=== PATIENT | male | born 1950 | race Caucasian/White ===

== ENCOUNTER 2020-12-25 13:44 | Outpatient (CLI) | payer MEDICARE, BC, SELFPAY ==
--- NOTE | ~2020-12-25 | MR_ITS ---
EXAMINATION: MR brain/brain stem wo/w con DATE: 12/25/2020 14:55 INDICATION: Headache, unspecified. Dizziness. TECHNIQUE: Magnetic resonance imaging (MRI) of the brain and brainstem was performed without and with 20 mL MultiHance intravenous contrast. Sequences included sagittal and axial T1-weighted FSE, axial diffusion-weighted FS EPI, axial T2*-weighted GRE, axial T2-weighted FLAIR Propeller, and axial T2-we ighted Propeller. Postcontrast sequences included axial and coronal T1-weighted FSE. Apparent diffusi on coefficient (ADC) maps were created. COMPARISON: Head CT 05/02/2015 FINDINGS: There are scattered areas of nonspecific increased T2-weighted signal intensity in the cere bral white matter and magdalene. There is no intracranial hemorrhage, acute infarction, or abnormal intrac ranial mass lesion. The ventricles are normal in size. The paranasal sinuses are clear. The orbits ar e normal. The mastoid air cells are normal. IMPRESSION: 1. Moderate nonspecific cerebral white matter disease and pontine disease, which likely represents ch ronic small vessel ischemic disease. Reviewed, dictated and finalized at location A. [employer] IMPRESSION: 1. Moderate nonspecific cerebral white matter disease and pontine disease, whic h likely represents chronic small vessel ischemic disease.
[2020-12-25 14:28] LABS: Estimated Glomerular Filt Rate > 60
== END 2020-12-25 13:45 | disposition home or self-care (01) ==
LOC: ANHIMG 13:56
PROVIDERS: PCP Internal Medicine; Visit Provider Nurse Practitioner
DX: R51.9 Headache, unspecified (principal); R93.0 Abnormal findings on diagnostic imaging of skull and head, not elsewhere classified
CPT/HCPCS: 70553; A9577

== ENCOUNTER 2021-08-24 03:17 | Day surgery (SDC) | payer MEDICARE, BC, SELFPAY ==
[2021-08-07 13:33] VITALS: BMI 35.9
--- NOTE | 2021-08-23 12:25 | PM.HPGS ---
History of Present Illness History of Present Illness Consent: Risks, benefits, and alternatives have been discussed and questions answered. Patient agrees to proceed with procedure. Chief complaint: hx of colon polyps Narrative: Kristopher Miles is a 70 year old male referred for colon cancer screening. He has had 3 polyps removed in the past Review of Systems Review of Systems: All systems reviewed & are unremarkable except as noted in HPI and below PMFSH Past Medical History Medical History Diabetes mellitus Leiomyosarcoma Macular degeneration Plantar fasciitis Spinal stenosis Family History Family History Father Cerebrovascular accident Family history of transient ischemic attacks Mother Family history of Alzheimer's disease Family history of dementia Sibling Patient's sister is in good health Other Diabetes mellitus Family history of cardiovascular disease Social History Social History Smoking status: Former smoker Alcohol intake: never Substance use: never Living arrangements: alone Spiritual care concerns: No Meds Home Medications and Allergies Home Medications Medication Instructions Recorded Confirmed Type vit C 250 mg-vit E 90 mg-zinc 40 1 tablet PO BID 09/28/19 08/24/21 History mg-copper 1 [id number] capsule aspirin 81 mg tablet,delayed 81 mg PO DAILY 12/21/19 08/24/21 History release omega-3 fatty acids 1,000 mg 1,000 mg PO DAILY 12/21/19 08/24/21 History capsule terbinafine HCl 250 mg tablet 250 mg PO MONTHLY 12/21/20 08/24/21 History flash glucose scanning reader #1 ea 12/25/20 08/24/21 Rx gabapentin 300 mg capsule 600 mg PO HS 02/15/21 08/24/21 History metformin 1,000 mg tablet 1,000 mg PO BID #180 tablet 06/18/21 08/24/21 Rx semaglutide 0.25 mg SUBCUT WEEKLY #1.5 ml 06/18/21 08/24/21 Rx losartan 100 mg tablet 100 mg PO DAILY #90 tablet 08/01/21 08/24/21 Rx lifitegrast [Xiidra] 1 drp EACH EYE BID 08/07/21 08/24/21 History flash glucose sensor #1 ea 08/10/21 08/24/21 Rx Allergies Allergy/AdvReac Type Severity Reaction Status Date / Time atorvastatin Allergy Mild Hives Verified 08/24/21 06:53 lisinopril Allergy Mild Flushing Verified 08/24/21 06:53 tamsulosin [From Flomax] Allergy Mild Hives Verified 08/24/21 06:53 Exam Resp: Auscultation: clear to auscultation bilaterally Cardio: Rate: regular rate Rhythm: regular rhythm GI: GI Palp: Yes Soft to palpation and No Tenderness to palpation present (GI) Assessment and Plan Assessment and plan (1) Screening for colon cancer: Code(s): Z12.11 - Encounter for screening for malignant neoplasm of colon Status: Acute Assessment and Plan: Colonoscopy with possible biopsy or polypectomy or cautery or injection of substances.
[2021-08-24 06:56] VITALS: BP 152/90; PULSE 88; RESP 18; TEMP 36.7; O2SAT 100
[2021-08-24] MEDS: LACTATED RINGERS 1,000 ML 150 ML IV CONT (07:08)
[2021-08-24 07:13] LABS: Glucose Point of Care 121 mg/dl (65-105)
--- NOTE | 2021-08-24 07:56 | WPDANESEPP ---
Anes - Eval Pre Procedure Procedure: Operation Date: 08/24/21 08:00 Proposed Procedures p Screening Colonoscopy - Alonso Ta MD Date/Time: 08/24/21 07:56 Pre Op Diagnosis: hx of colon polyps Patient Data Age: 70 Gender: M Height: 1.78 m Weight: 112.7 kg Last Vital Signs Temp 36.7 C 08/24/21 06:56 Pulse 88 08/24/21 06:56 Resp 18 08/24/21 06:56 BP 152/90 H 08/24/21 06:56 Pulse Ox 100 08/24/21 06:56 Allergies Allergy/AdvReac Type Severity Reaction Status Date / Time atorvastatin Allergy Mild Hives Verified 08/24/21 06:53 lisinopril Allergy Mild Flushing Verified 08/24/21 06:53 tamsulosin [From Flomax] Allergy Mild Hives Verified 08/24/21 06:53 Home Medications Medication Instructions Recorded Confirmed Type vit C 250 mg-vit E 90 mg-zinc 40 1 tablet PO BID 09/28/19 08/24/21 History mg-copper 1 [id number] capsule aspirin 81 mg tablet,delayed 81 mg PO DAILY 12/21/19 08/24/21 History release omega-3 fatty acids 1,000 mg 1,000 mg PO DAILY 12/21/19 08/24/21 History capsule terbinafine HCl 250 mg tablet 250 mg PO MONTHLY 12/21/20 08/24/21 History flash glucose scanning reader #1 ea 12/25/20 08/24/21 Rx gabapentin 300 mg capsule 600 mg PO HS 02/15/21 08/24/21 History metformin 1,000 mg tablet 1,000 mg PO BID #180 tablet 06/18/21 08/24/21 Rx semaglutide 0.25 mg SUBCUT WEEKLY #1.5 ml 06/18/21 08/24/21 Rx losartan 100 mg tablet 100 mg PO DAILY #90 tablet 08/01/21 08/24/21 Rx lifitegrast [Xiidra] 1 drp EACH EYE BID 08/07/21 08/24/21 History flash glucose sensor #1 ea 08/10/21 08/24/21 Rx Laboratory Tests 08/24/21 07:07 POC Capillary Glucose 121 mg/dl H mg/dl (65-105) Patient hx anesthesia problems: none Family hx anesthesia problems: none Results Review: All pre-operative results and documents have been reviewed as part of the pre-operative evaluation. [facility] Past Medical History Medical History Diabetes mellitus Leiomyosarcoma Macular degeneration Plantar fasciitis Spinal stenosis Family History Family History Father Cerebrovascular accident Family history of transient ischemic attacks Mother Family history of Alzheimer's disease Family history of dementia Sibling Patient's sister is in good health Other Diabetes mellitus Family history of cardiovascular disease Social History Social History Smoking status: Former smoker Alcohol intake: never Substance use: never Living arrangements: alone Spiritual care concerns: No Exam Day of Procedure 08/24/21 07:56 Patient weight: normal Heart: regular rate and rhythm Lungs: clear to auscultation and normal air movement Airway: Mallampati scale Neurological: alert and oriented
--- NOTE | 2021-08-24 08:01 | WPDANESEFPP ---
Anes - Eval Final PreProcedure Day of Procedure 08/24/21 08:01 Patient weight: obese Heart: regular rate and rhythm Lungs: clear to auscultation Airway: Mallampati scale class II Neurological: alert and oriented Last oral intake: >/= 8 hours ASA classification: III Emergent: no Anesthetic plan: proceed Anesthesia type and monitoring: general GIVS and standard monitoring Results Review: All pre-operative results and documents have been reviewed as part of the pre-operative evaluation. Informed Consent: The patient's anesthetic plan and its attendant risks and benefits were discussed with the patient/family/POA. Questions were solicited and answers provided to the satisfaction of the patient/family/POA.
[2021-08-24] MEDS: SIMETHICONE ORAL SUSPENSION 20 MG/0.3 ML 30 ML BOTTLE 0.6 ML IRRIGATION (08:08)
[2021-08-24 08:20] VITALS: BP 119/81; PULSE 87; RESP 24; O2SAT 97
[2021-08-24 08:30] VITALS: BP 130/77; PULSE 86; RESP 20; O2SAT 100
[2021-08-24 08:40] VITALS: BP 123/77; PULSE 79; RESP 20; O2SAT 100
== END 2021-08-24 09:00 | disposition home or self-care (01) ==
PROVIDERS: PCP Internal Medicine; Visit Provider Internal Medicine Gastroenterology
PROC: 0DJD8ZZ Inspection of Lower Intestinal Tract, Via Natural or Artificial Opening Endoscopic (ICD-10-PCS; CPT 45378; principal; 2021-08-24 08:00)
DX: Z12.11 Encounter for screening for malignant neoplasm of colon (principal); K63.5 Polyp of colon; E66.9 Obesity, unspecified; Z68.35 Body mass index [BMI] 35.0-35.9, adult; Z79.82 Long term (current) use of aspirin; Z79.84 Long term (current) use of oral hypoglycemic drugs; E11.9 Type 2 diabetes mellitus without complications; M72.2 Plantar fascial fibromatosis; Z87.891 Personal history of nicotine dependence
CPT/HCPCS: G0105; 82948; 88305; J2704; J7120

== ENCOUNTER → 2022-05-31 01:35 | Outpatient (CLI) | payer MEDICARE, BC, SELFPAY ==
[2022-05-31 11:14] LABS: SARS-CoV-2 RNA PCR Negative
== END ==
PROVIDERS: PCP Internal Medicine; Visit Provider Nurse Practitioner
DX: R50.9 Fever, unspecified (principal); Z20.822 Contact with and (suspected) exposure to COVID-19
CPT/HCPCS: C9803; U0003; U0005

== ENCOUNTER 2022-07-01 14:27 | Outpatient (RCR) | payer MEDICARE, BC, SELFPAY ==
--- NOTE | 2022-07-01 14:53 | PCPTNOTE ---
pt attended PT evaluation appt, and stated he was getting therapy at another facility and wanted to go there for vestibular therapy too. He stated the other therapist can do vestibular therapy and he had talked with him about it. PT eval not performed. Issued pt a copy of the PT order and he is going to go to another facility for treatment.
== END 2022-09-16 09:57 | disposition home or self-care (01) ==
LOC: ANHPT 14:27
PROVIDERS: PCP Internal Medicine; Referring Provider Nurse Practitioner; Visit Provider Nurse Practitioner
DX: R42 Dizziness and giddiness (principal)
CPT/HCPCS: 99199

== ENCOUNTER → 2022-07-30 12:03 | Outpatient (CLI) | payer MEDICARE, BC, SELFPAY ==
--- NOTE | ~2022-07-30 | MR_ITS ---
EXAMINATION: MR thoracic spine wo/w con DATE: 07/30/2022 14:01 INDICATION: Myelopathy. TECHNIQUE: Magnetic resonance imaging (MRI) of the thoracic spine was performed without and with 20 m L MultiHance intravenous contrast. COMPARISON: None FINDINGS: There is 4 degrees levocurvature of upper thoracic spine. Vertebral body heights are normal . Intervertebral disc heights are normal. The discs do not extend beyond the endplate margins. There is multilevel facet joint osteoarthritis, severe on the right at T8-T9 and on the left at T7-T8 and T 8-T9. On the right, there is mild neural foraminal stenosis at T8-T9. On the left, there is mild neur al foraminal stenosis at T7-T8 and T8-T9. No central canal stenosis. The spinal cord signal intensity is normal. The conus medullaris is at L1. IMPRESSION: 1. Mild thoracic spondylosis. Reviewed, dictated and finalized at location A.
--- NOTE | ~2022-07-30 | MR_ITS ---
EXAMINATION: MR cervical spine wo/w con DATE: 07/30/2022 14:00 INDICATION: Myelopathy. TECHNIQUE: Magnetic resonance imaging (MRI) of the cervical spine was performed without and with 20 m L MultiHance intravenous contrast. COMPARISON: None FINDINGS: There is 4 degrees dextrocurvature of cervicothoracic spine. There is hypolordosis of cervi malka spine. Vertebral body heights are normal. There is severely decreased disc height from C4-C5 thro ugh C7-T1. The spinal cord signal intensity is normal. The following disc levels are specifically dis cussed: C2-C3: The disc does not extend beyond the endplate margin. There is no uncovertebral joint osteoarth ritis. There is severe right and moderate left facet joint osteoarthritis. There is mild bilateral ne ural foraminal stenosis. There is no central canal stenosis. C3-C4: There is a central extrusion. There is mild left uncovertebral joint osteoarthritis. There is moderate right and severe left facet joint osteoarthritis. There is mild right and moderate left neur al foraminal stenosis. There is mild central canal stenosis with ventral indentation of the spinal co rd. C4-C5: The disc is bulging. There is severe bilateral uncovertebral joint osteoarthritis. There is mo derate right and severe left facet joint osteoarthritis. There is moderate bilateral neural foraminal stenosis. There is moderate central canal stenosis with ventral and dorsal indentation of the spinal cord. C5-C6: The disc is bulging. There is severe bilateral uncovertebral joint osteoarthritis. There is mi ld bilateral facet joint osteoarthritis. There is moderate right and mild left neural foraminal steno sis. There is mild central canal stenosis with ventral indentation of spinal cord. C6-C7: The disc is bulging. There is severe bilateral uncovertebral joint osteoarthritis. There is mi ld bilateral facet joint osteoarthritis. There is mild bilateral neural foraminal stenosis. There is mild central canal stenosis. C7-T1: The disc is bulging. There is severe bilateral uncovertebral joint osteoarthritis. There is se connie bilateral facet joint osteoarthritis. There is mild bilateral neural foraminal stenosis. There i s mild central canal stenosis. IMPRESSION: 1. Severe cervical spondylosis. Reviewed, dictated and finalized at location A.
== END ==
PROVIDERS: PCP Internal Medicine
DX: R26.89 Other abnormalities of gait and mobility (principal); R26.9 Unspecified abnormalities of gait and mobility; M47.894 Other spondylosis, thoracic region; M47.892 Other spondylosis, cervical region
CPT/HCPCS: 72156; 72157; A9577

== ENCOUNTER 2023-04-10 15:15 | Emergency (ER) | payer MEDICARE, BC, SELFPAY ==
--- NOTE | ~2023-04-10 | XR_ITS ---
EXAMINATION: XR chest 2V DATE: 04/10/2023 15:48 INDICATION: EKG changes TECHNIQUE: frontal view of the chest was obtained. COMPARISON: Chest radiograph dated 06/28/[address] dated 05/02/2015 and 08/02/2016 FINDINGS: Subtle reticulonodular opacities at the right lung base corresponding to a small amount of chronic in terstitial lung disease trauma versus scarring on prior CT. No new airspace opacity, pulmonary edema, pleural effusion or pneumothorax. The cardiomediastinal silhouette is normal. Postoperative changes with plate and screw fixations along the right lamina at C5 and C6. IMPRESSION: 1. Chronic mild atelectasis/scarring at the right lung base. No acute cardiopulmonary disease. Reviewed, dictated and finalized at location A. IMPRESSION: 1. Chronic mild atelectasis/scarring at the right lung base. No acute cardiopul monary disease.
--- NOTE | 2023-04-10 15:17 | ECG_ITS ---
Measurements Intervals [place] Rate: 107 P: 33 AR: 145 QRS: -19 QRSD: 99 T: 30 QT: 319 QTc: 426 Interpretive Statements SINUS TACHYCARDIA POOR RE-WAVE PROGRESSION INFERIOR MYOCARDIAL INFARCTION , PROBABLY OLD [40+ ms Q WAVE AND/OR ST/T ABNORMALITY IN II/aVF] NO PREVIOUS ECG AVAILABLE FOR COMPARISON Electronically Signed On 04-10-2023 16:07:17 CDT by Radha Sims M.D.
[2023-04-10 15:18] VITALS: BP 153/78; PULSE 108; RESP 18; TEMP 36.4; O2SAT 97
[2023-04-10 15:37] LABS: Basophils Absolute Auto 0.1 K/mm3 (0.0-0.1); Eosinophils Absolute Auto 0.2 K/mm3 (0-0.3); Eosinophils Percent Auto 2.2 % (0-4.4); Hematocrit 45.6 % (42.0-52.0); Hemoglobin 15.2 g/dL (14.0-18.0); Immature Granulocyte Absolute 0.03 K/mm3 (0.00-0.031); Immature Granulocyte Percent A 0.3 % (0-0.5); Lymphocytes Absolute Auto 2.49 K/mm3 (0.9-3.2); Lymphocytes Percent Auto 27.7 % (18.3-44.2); Mean Corpuscular HGB Conc 33.3 g/dl (32-36); Mean Corpuscular Hemoglobin 29.8 pg (26-34); Mean Corpuscular Volume 89.4 fl (80-100); Mean Platelet Volume 9.2 fl (7.4-10.4); Monocytes Absolute Auto 0.8 K/mm3 (0.1-0.6); Monocytes Percent Auto 8.3 % (2.6-8.5); Neutrophils Absolute Auto 5.4 K/mm3 (1.3-6.7); Neutrophils Percent Auto 60.5 % (45.5-73.1); Platelet Count Result 244 k/mm3 (150-375); Red Cell Distribution Width 13.9 % (11.5-14.5)
[2023-04-10 15:47] LABS: Alanine Aminotransferase 29 U/L (6-50); Albumin Level 4.6 g/dL (3.5-5.1); Alkaline Phosphatase 74 U/L (38-126); Anion Gap 9 mmol/L (8-16); Aspartate Amino Transferase 25 U/L (17-59); Bilirubin,Total 0.3 mg/dL (0.2-1.3); Blood Urea Nitrogen 18 mg/dL (9-20); Calcium 8.8 mg/dL (8.4-10.2); Carbon Dioxide 25 mmol/L (22-30); Chloride 103 mmol/L (98-107); Estimated CRCL calculation 94 ml/min; Estimated Glomerular Filt Rate > 60; Glucose 143 mg/dL (65-110); Lipase 93 U/L (23-300); Potassium 4.1 mmol/L (3.4-5.0); Sodium 137 mmol/L (137-145)
[2023-04-10 15:48] LABS: INR 0.9; Prothrombin Time 12.2 Seconds (11.1-14.7)
[2023-04-10 15:49] LABS: Partial Thromboplastin Time 29.4 SECONDS (22.3-36.8)
[2023-04-10 16:00] LABS: Troponin I < 0.012 ng/mL (0.000-0.034)
[2023-04-10 16:28] VITALS: RESP 18; O2SAT 97
[2023-04-10 16:33] VITALS: BP 167/108; PULSE 99; RESP 12; O2SAT 97
[2023-04-10 17:41] VITALS: BP 166/99; PULSE 97; RESP 20; O2SAT 98
--- NOTE | 2023-04-10 17:56 | ED.GENADULT ---
HPI - General Adult General Chief complaint: Recheck/Abnormal Lab/Rx Stated complaint: Multiple complaints, VARGAS, GERD Ekg changes Time Seen by Provider: 04/10/23 16:37 History of Present Illness HPI narrative: Patient is a 72-year-old male who presents ER with multiple chronic complaints. The main issue that he arrives with today's that his PCP performed an EKG on him in the office that showed EKG changes. He reports they are concerned he could have had a heart attack given the fact that he has been having acid reflux symptoms and sent him to the ER. He reports he has been on Protonix 40 mg for prolonged period due to acid reflux and he had to discontinue his omeprazole. He has history of ulcerations in the past. He has not had a EGD recently. He reports his symptoms are worse at nighttime when he lays down flat. He has no nausea or vomiting. No dark black stools or hematemesis. Patient said complaint is that he has had blurring of his peripheral vision over the last 2 weeks anytime he looks to the right or left side. He has history of macular degeneration and follows with a retina specialist. He has not yet contacted his eye doctor regarding these issues. He reports these issues are also related to a throbbing frontal headache. He has no history of migraine headache and no history of aneurysm. He has no focal numbness or weakness in arms/legs/face. Related Data Home Medications Medication Instructions Recorded Confirmed vit C 250 mg-vit E 90 mg-zinc 40 1 tablet PO BID 09/28/19 04/10/23 mg-copper 1 [id number] capsule (PreserVision AREDS-2) aspirin 81 mg tablet,delayed 81 mg PO DAILY 12/21/19 04/10/23 release (Adult Aspirin Regimen) omega-3 fatty acids 1,000 mg 1,000 mg PO DAILY 12/21/19 04/10/23 capsule (Fish Oil Concentrate) lifitegrast 5 % eye drops in a 1 drp EACH EYE BID 08/07/21 04/10/23 dropperette (Xiidra) Allergies Allergy/AdvReac Type Severity Reaction Status Date / Time atorvastatin Allergy Mild Hives Verified 04/10/23 16:32 lisinopril Allergy Mild Flushing Verified 04/10/23 16:32 tamsulosin [From Flomax] Allergy Mild Hives Verified 04/10/23 16:32 Review of Systems Review of Systems: All systems reviewed & are unremarkable except as noted in HPI and below Constitutional: Constitutional: Denies chills, Denies fatigue and Denies fever(s) Eyes: Eyes: Reports change in vision and Denies photophobia ENT: Denies nasal congestion and Denies sore throat Cardiovascular: Cardiovascular: Denies chest pain, Denies rapid heart rate, Denies radiating jaw, neck or arm pain and Denies slow heart rate Respiratory: Respiratory: Denies cough and Denies dyspnea Gastrointestinal: Gastrointestinal: Denies abdominal pain, Reports bloating, Reports heartburn, Denies diarrhea, Denies nausea and Denies vomiting Comments: Frequent belching Neurologic: Reports headache(s), Denies focal weakness and Denies numbness PMFSH Past Medical History Medical History (Updated 04/10/23 @ 18:15 by Salvador Sterling MD) Diabetes mellitus GERD (gastroesophageal reflux disease) Leiomyosarcoma Macular degeneration Plantar fasciitis Spinal stenosis Surgical History Surgical History (Updated 02/27/23 @ 08:41 by Anni Lopez [facility]) H/O laminectomy (~09/23/22) Family History Family History Father Cerebrovascular accident Family history of transient ischemic attacks Mother Family history of Alzheimer's disease Family history of dementia Sibling Patient's sister is in good health Other Diabetes mellitus Family history of cardiovascular disease Social History Social History (Updated 02/27/23 @ 08:49 by Anni Lopez [facility]) Smoking status: Former smoker Alcohol intake: never Alcohol use details: rare Substance use: never Substance use type: former substance user and marijuana Last use: early 20s, experimented Lack of Transportat
== END 2023-04-10 18:34 | disposition home or self-care (01) ==
PROVIDERS: Emergency Provider Emergency Medicine; PCP Internal Medicine
DX: K21.9 Gastro-esophageal reflux disease without esophagitis (principal); E11.9 Type 2 diabetes mellitus without complications; H35.30 Unspecified macular degeneration; Z87.891 Personal history of nicotine dependence; R00.0 Tachycardia, unspecified; R94.31 Abnormal electrocardiogram [ECG] [EKG]; Z79.82 Long term (current) use of aspirin; Z79.84 Long term (current) use of oral hypoglycemic drugs
CPT/HCPCS: 36415; 71046; 80053; 83690; 84484; 85025; 85610; 85730; 93005; 99284

== ENCOUNTER → 2023-04-24 09:08 | Outpatient (CLI) | payer MEDICARE, BC, SELFPAY ==
--- NOTE | ~2023-04-24 | MR_ITS ---
EXAMINATION: MR brain/brain stem wo/w con DATE: 04/24/2023 10:07 INDICATION: Headache, unspecified. TECHNIQUE: Magnetic resonance imaging (MRI) of the brain and brainstem was performed without and with 20 mL MultiHance intravenous contrast. COMPARISON: Brain MRI 12/25/2020 FINDINGS: There are scattered areas of nonspecific increased T2-weighted signal intensity in the cere bral white matter and magdalene. There is no intracranial hemorrhage, acute infarction, or abnormal intrac ranial mass lesion. The ventricles are normal in size. There are likely changes of ocular lens replac ement surgeries. The mastoid air cells are normal. The paranasal sinuses are clear. IMPRESSION: 1. Extensive nonspecific cerebral white matter disease and pontine disease with mild interval worseni ng, which likely represents chronic small vessel ischemic disease. Reviewed, dictated and finalized at location A. IMPRESSION: 1. Extensive nonspecific cerebral white matter disease and pontine disease with mild interval worsening, which likely represents chronic small vessel ischemic disease.
== END ==
PROVIDERS: PCP Internal Medicine; Visit Provider Nurse Practitioner
DX: R51.9 Headache, unspecified (principal); R93.0 Abnormal findings on diagnostic imaging of skull and head, not elsewhere classified
CPT/HCPCS: 70553; A9577

== ENCOUNTER 2023-06-20 01:43 | Day surgery (SDC) | payer MEDICARE, BC, SELFPAY ==
[2023-06-06 12:53] VITALS: BMI 36.1
--- NOTE | 2023-06-19 11:57 | PM.HPGS ---
History of Present Illness History of Present Illness Consent: Risks, benefits, and alternatives have been discussed and questions answered. Patient agrees to proceed with procedure. Chief complaint: GERD Narrative: Kristopher Miles is a 72 year old male Who has been suffering from severe acid reflux including the fact he had chest pain that was thought to possibly be cardiac. He has Rarely had Some dysphagia . he had been on Protonix for a long period of time. He also had tried omeprazole in the past. his primary symptoms however is belching particularly bad at night. He does not have a CPAP machine Review of Systems Review of Systems: All systems reviewed & are unremarkable except as noted in HPI and below PMFSH Past Medical History Medical History Diabetes mellitus GERD (gastroesophageal reflux disease) Leiomyosarcoma Macular degeneration Plantar fasciitis Spinal stenosis Surgical History Surgical History H/O laminectomy (~09/23/22) Family History Family History Father Cerebrovascular accident Family history of transient ischemic attacks Mother Family history of Alzheimer's disease Family history of dementia Sibling Patient's sister is in good health Other Diabetes mellitus Family history of cardiovascular disease Social History Social History Smoking status: Former smoker Alcohol intake: never Alcohol use details: rare Substance use: never Substance use type: former substance user and marijuana Last use: early 20s, experimented Lack of Transportation: No Lack of Food: Never True Current Housing: I Have Housing Concerned About Future Housing: No Difficulty Paying Gas/Electric Bills: No Difficulty Paying for Meds: No Currently Unemployed: No Education: Bachelor's Degree Difficulty w/ Childcare or Family Care: No Living arrangements: alone Spiritual care concerns: No Meds Home Medications and Allergies Home Medications Medication Instructions Recorded Confirmed Type vit C 250 mg-vit E 90 mg-zinc 40 1 tablet PO BID 09/28/19 06/06/23 History mg-copper 1 [id number] capsule (PreserVision AREDS-2) aspirin 81 mg tablet,delayed 81 mg PO DAILY 12/21/19 06/06/23 History release (Adult Aspirin Regimen) omega-3 fatty acids 1,000 mg 1,000 mg PO DAILY 12/21/19 06/06/23 History capsule (Fish Oil Concentrate) lifitegrast 5 % eye drops in a 1 drp EACH EYE BID 08/07/21 06/06/23 History dropperette (Xiidra) lansoprazole 30 mg capsule,delayed 30 mg PO DAILY 1 month #30 caps 04/17/23 06/06/23 Rx release (Prevacid) metformin 1,000 mg tablet See Rx Instructions .Route 04/29/23 06/06/23 Rx .COMPLEX #180 tabs losartan 100 mg tablet (Cozaar) 100 mg PO DAILY 06/06/23 06/06/23 History Allergies Allergy/AdvReac Type Severity Reaction Status Date / Time atorvastatin Allergy Mild Hives Verified 06/20/23 06:37 lisinopril Allergy Mild Flushing Verified 06/20/23 06:37 tamsulosin [From Flomax] Allergy Mild Hives Verified 06/20/23 06:37 Exam Const: General: alert Orientation/consciousness: patient oriented x3 Resp: Auscultation: clear to auscultation bilaterally Cardio: Rhythm: regular rhythm GI: GI Palp: Yes Soft to palpation and No Tenderness to palpation present (GI) Neuro: General: patient oriented x3 Assessment and Plan Assessment and plan (1) GERD (gastroesophageal reflux disease): Qualifiers: Esophagitis presence: without esophagitis Qualified Code(s): K21.9 - Gastro-esophageal reflux disease without esophagitis Code(s): K21.9 - Gastro-esophageal reflux disease without esophagitis Status: Acute Assessment and Plan: EGD with possible biopsy or dilatation or cautery.
[2023-06-20 06:38] VITALS: BP 146/97; PULSE 89; RESP 20; TEMP 36.6; O2SAT 97
[2023-06-20] MEDS: LACTATED RINGERS 1,000 ML 150 ML IV CONT (06:47)
[2023-06-20 06:54] LABS: Glucose Point of Care 143 mg/dl (65-105)
--- NOTE | 2023-06-20 07:51 | WPDANESEPPF ---
Anes - Initial Pre Proc Eval Procedure: Operation Date: 06/20/23 08:00 Proposed Procedures p Esophagogastroduodenoscopy - Alonso Ta MD Date/Time: 06/20/23 07:51 Surgeon: Alonso Ta MD Pre Op Diagnosis: GERD Patient Data Age: 72 Gender: M Height: 1.79 m Weight: 116.7 kg Last Vital Signs Temp 98 F 06/20/23 06:38 Pulse 89 06/20/23 06:38 Resp 20 06/20/23 06:38 BP 146/97 H 06/20/23 06:38 Pulse Ox 97 06/20/23 06:38 O2 Del Method Room Air 06/20/23 06:38 Allergies Allergy/AdvReac Type Severity Reaction Status Date / Time atorvastatin Allergy Mild Hives Verified 06/20/23 06:37 lisinopril Allergy Mild Flushing Verified 06/20/23 06:37 tamsulosin [From Flomax] Allergy Mild Hives Verified 06/20/23 06:37 Home Medications Medication Instructions Recorded Confirmed Type vit C 250 mg-vit E 90 mg-zinc 40 1 tablet PO BID 09/28/19 06/06/23 History mg-copper 1 km-llxbji-ivljzr capsule (PreserVision AREDS-2) aspirin 81 mg tablet,delayed 81 mg PO DAILY 12/21/19 06/06/23 History release (Adult Aspirin Regimen) omega-3 fatty acids 1,000 mg 1,000 mg PO DAILY 12/21/19 06/06/23 History capsule (Fish Oil Concentrate) lifitegrast 5 % eye drops in a 1 drp EACH EYE BID 08/07/21 06/06/23 History dropperette (Xiidra) lansoprazole 30 mg capsule,delayed 30 mg PO DAILY 1 month #30 caps 04/17/23 06/06/23 Rx release (Prevacid) metformin 1,000 mg tablet See Rx Instructions .Route 04/29/23 06/06/23 Rx .COMPLEX #180 tabs losartan 100 mg tablet (Cozaar) 100 mg PO DAILY 06/06/23 06/06/23 History Laboratory Tests 06/20/23 06:49 POC Capillary Glucose 143 H mg/dl (65-105) Patient hx anesthesia problems: none Family hx anesthesia problems: none Results Review: All pre-operative results and documents have been reviewed as part of the pre-operative evaluation. [facility] Past Medical History Medical History Diabetes mellitus GERD (gastroesophageal reflux disease) Leiomyosarcoma Macular degeneration Plantar fasciitis Spinal stenosis Surgical History Surgical History H/O laminectomy (~09/23/22) Family History Family History Father Cerebrovascular accident Family history of transient ischemic attacks Mother Family history of Alzheimer's disease Family history of dementia Sibling Patient's sister is in good health Other Diabetes mellitus Family history of cardiovascular disease Social History Social History Smoking status: Former smoker Alcohol intake: never Alcohol use details: rare Substance use: never Substance use type: former substance user and marijuana Last use: early 20s, experimented Lack of Transportation: No Lack of Food: Never True Current Housing: I Have Housing Concerned About Future Housing: No Difficulty Paying Gas/Electric Bills: No Difficulty Paying for Meds: No Currently Unemployed: No Education: Bachelor's Degree Difficulty w/ Childcare or Family Care: No Living arrangements: alone Spiritual care concerns: No Anes - Eval Final PreProcedure Day of Procedure 06/20/23 07:51 Patient weight: obese Heart: regular rate and rhythm Lungs: clear to auscultation Airway: Mallampati scale class II Neurological: alert and oriented Last oral intake: >/= 8 hours ASA classification: III Emergent: no Anesthetic plan: proceed Anesthesia type and monitoring: general GIVS and standard monitoring Results Review: All pre-operative results and documents have been reviewed as part of the pre-operative evaluation. Informed Consent: The patient's anesthetic plan and its attendant risks and benefits were discussed with the patient/family/POA. Questions were solicited and answers provided to the
[2023-06-20 08:13] VITALS: BP 132/80; PULSE 70; RESP 20; O2SAT 97
[2023-06-20 08:23] VITALS: BP 148/87; PULSE 68; RESP 20; O2SAT 97
[2023-06-20 08:33] VITALS: BP 144/90; PULSE 66; RESP 20; O2SAT 98
== END 2023-06-20 08:37 | disposition home or self-care (01) ==
PROVIDERS: PCP Internal Medicine; Visit Provider Internal Medicine Gastroenterology
PROC: 0DJ08ZZ Inspection of Upper Intestinal Tract, Via Natural or Artificial Opening Endoscopic (ICD-10-PCS; CPT 43235; principal; 2023-06-20 08:00)
DX: K29.70 Gastritis, unspecified, without bleeding (principal); K21.9 Gastro-esophageal reflux disease without esophagitis; E11.9 Type 2 diabetes mellitus without complications; Z79.82 Long term (current) use of aspirin; Z79.84 Long term (current) use of oral hypoglycemic drugs; Z87.891 Personal history of nicotine dependence; E66.9 Obesity, unspecified; Z68.36 Body mass index [BMI] 36.0-36.9, adult
CPT/HCPCS: 43239; 82948; 87081; 88305; J2704; J7120

== ENCOUNTER → 2023-07-15 13:51 | Outpatient (CLI) | payer MEDICARE, BC, SELFPAY ==
--- NOTE | ~2023-07-15 | XR_ITS ---
EXAMINATION: XR finger 1st RT min 2V DATE: 07/15/2023 14:02 INDICATION: Right thumb pain. TECHNIQUE: 3 views of right thumb were obtained. COMPARISON: Right wrist radiographs 09/18/16 FINDINGS: Bone alignment is normal. No fracture. There is mild osteoarthritis of first carpometacarpa l joint, first metacarpophalangeal joint, and first interphalangeal joint. IMPRESSION: 1. Mild polyarticular osteoarthritis. Reviewed, dictated and finalized at location E.
== END ==
PROVIDERS: PCP Internal Medicine; Visit Provider Nurse Practitioner
DX: M79.644 Pain in right finger(s) (principal)
CPT/HCPCS: 73140

== ENCOUNTER 2024-07-27 07:52 | Outpatient (RCR) | payer MEDICARE, BC, SELFPAY ==
[2024-07-27 14:00] LABS: Basophils Absolute Auto 0.1 K/mm3 (0.0-0.1); Basophils Percent Auto 0.8 % (0.2-1.2); Eosinophils Absolute Auto 0.2 K/mm3 (0-0.3); Eosinophils Percent Auto 2.5 % (0-4.4); Hematocrit 45.5 % (42.0-52.0); Immature Granulocyte Absolute 0.01 K/mm3 (0.00-0.031); Immature Granulocyte Percent A 0.2 % (0-0.5); Lymphocytes Absolute Auto 1.46 K/mm3 (0.9-3.2); Lymphocytes Percent Auto 24.7 % (18.3-44.2); Mean Corpuscular Hemoglobin 30.7 pg (26-34); Mean Corpuscular Volume 93.2 fl (80-100); Mean Platelet Volume 10.6 fl (7.4-10.4); Monocytes Absolute Auto 0.6 K/mm3 (0.1-0.6); Monocytes Percent Auto 9.8 % (2.6-8.5); Neutrophils Absolute Auto 3.7 K/mm3 (1.3-6.7); Platelet Count Result 220 k/mm3 (150-375); Red Blood Count 4.88 M/mm3 (4.6-6.20); Red Cell Distribution Width 13.4 % (11.5-14.5); White Blood Count 5.9 K/mm3 (4.5-10.0)
[2024-07-27 14:46] LABS: Alanine Aminotransferase 15 U/L (6-50); Albumin Level 4.2 g/dL (3.5-5.1); Alkaline Phosphatase 67 U/L (38-126); Anion Gap 6 mmol/L (4-12); Aspartate Amino Transferase 90 U/L (17-59); Bilirubin,Total 0.8 mg/dL (0.2-1.3); Blood Urea Nitrogen 20 mg/dL (9-20); Calcium 8.7 mg/dL (8.4-10.2); Carbon Dioxide 29 mmol/L (22-30); Chloride 101 mmol/L (98-107); Estimated Glomerular Filt Rate > 60; Glucose 130 mg/dL (65-110); Sodium 136 mmol/L (137-145)
[2024-07-27 14:59] LABS: Immunoglobulin A 236 mg/dL (70-400); Immunoglobulin G 1827 mg/dL (700-1600); Immunoglobulin M 73 mg/dL (40-230)
[2024-07-28 15:57] LABS: Protein, Total 7.4 g/dL (6.1-8.1)
[2024-07-29 16:32] LABS: Abnormal Protein Band 1 1.4 g/dL (NONE DETECTED); Albumin 3.9 g/dL (3.8-4.8); Alpha 1 Globulin 0.3 g/dL (0.2-0.3); Alpha 2 Globulin 0.7 g/dL (0.5-0.9); Beta 1 Globulin 0.5 g/dL (0.4-0.6); Gamma Globulin 1.7 g/dL (0.8-1.7)
[2024-07-30 13:33] LABS: Kappa\\Lambda Light Chains 0.24 (0.26-1.65); Lambda Light Chain 141.2 mg/L (5.7-26.3)
== END 2024-10-25 23:59 | disposition home or self-care (01) ==
LOC: ANHGOSHLAB 07:52
PROVIDERS: PCP Nurse Practitioner; Visit Provider Internal Medicine Hematology
DX: D47.2 Monoclonal gammopathy (principal)
CPT/HCPCS: 36415; 80053; 82784; 83883; 84155; 84165; 85025

== ENCOUNTER 2024-11-04 09:14 | Outpatient (RCR) | payer MEDICARE, BC, SELFPAY ==
[2024-11-04 11:22] LABS: Basophils Absolute Auto 0.1 K/mm3 (0.0-0.1); Eosinophils Absolute Auto 0.1 K/mm3 (0-0.3); Eosinophils Percent Auto 1.8 % (0-4.4); Hematocrit 45.5 % (42.0-52.0); Hemoglobin 15.1 g/dL (14.0-18.0); Immature Granulocyte Absolute 0.01 K/mm3 (0.00-0.031); Immature Granulocyte Percent A 0.2 % (0-0.5); Lymphocytes Absolute Auto 1.56 K/mm3 (0.9-3.2); Lymphocytes Percent Auto 25.4 % (18.3-44.2); Mean Corpuscular HGB Conc 33.2 g/dl (32-36); Mean Corpuscular Hemoglobin 30.4 pg (26-34); Mean Corpuscular Volume 91.7 fl (80-100); Mean Platelet Volume 10.3 fl (7.4-10.4); Monocytes Absolute Auto 0.6 K/mm3 (0.1-0.6); Monocytes Percent Auto 9.6 % (2.6-8.5); Neutrophils Absolute Auto 3.8 K/mm3 (1.3-6.7); Platelet Count Result 210 k/mm3 (150-375); Red Blood Count 4.96 M/mm3 (4.6-6.20); White Blood Count 6.2 K/mm3 (4.5-10.0)
[2024-11-04 11:41] LABS: Alanine Aminotransferase 19 U/L (6-50); Albumin Level 3.9 g/dL (3.5-5.1); Alkaline Phosphatase 78 U/L (38-126); Anion Gap 8 mmol/L (4-12); Aspartate Amino Transferase 37 U/L (17-59); Bilirubin,Total 0.8 mg/dL (0.2-1.3); Blood Urea Nitrogen 14 mg/dL (9-20); Calcium 8.6 mg/dL (8.4-10.2); Carbon Dioxide 23 mmol/L (22-30); Chloride 103 mmol/L (98-107); Estimated Glomerular Filt Rate > 60; Glucose 142 mg/dL (65-110); Potassium 4.1 mmol/L (3.4-5.0); Sodium 134 mmol/L (137-145)
[2024-11-04 11:50] LABS: Immunoglobulin A 240 mg/dL (70-400); Immunoglobulin G 2073 mg/dL (700-1600); Immunoglobulin M 70 mg/dL (40-230)
[2024-11-05 09:53] LABS: Protein, Total 7.4 g/dL (6.1-8.1)
[2024-11-05 22:48] LABS: Abnormal Protein Band 1 1.5 g/dL (NONE DETECTED); Albumin 3.9 g/dL (3.8-4.8); Alpha 1 Globulin 0.3 g/dL (0.2-0.3); Alpha 2 Globulin 0.6 g/dL (0.5-0.9); Beta 1 Globulin 0.4 g/dL (0.4-0.6); Gamma Globulin 1.8 g/dL (0.8-1.7)
== END 2025-02-02 23:59 | disposition home or self-care (01) ==
LOC: ANHGOSHLAB 09:14
PROVIDERS: PCP Nurse Practitioner
DX: D47.2 Monoclonal gammopathy (principal)
CPT/HCPCS: 36415; 80053; 82784; 84155; 84165; 85025; 85055

== ENCOUNTER 2024-11-16 08:35 | Outpatient (CLI) | payer MEDICARE, BC, SELFPAY ==
--- OUTSIDE RECORDS SUMMARY | 2024-11-16 08:49 | XMS_ITS | Encounter Summary ---
Author Organization [facility] Address [address] [place] [address] Phone Care Team Providers Care Environmental Health Nurse Name Role Phone Ayah Mata MD Unavailable Aft, Nidia Wallace MD PhD Unavailable [phone] Greg Sosa DO Primary Care Provider [phone] Maxwell Davis MD PhD Unavailable [phone] Pro Davis MD Unavailable [phone] Encounter Details Date Type Department Care Team (Latest Contact Info) Description 06/17/2024 Orders Only [facility] Scanning, Provider Social History Tobacco Use Types Packs/Day Years Used Date Smoking Tobacco: Former Cigarettes 1 39 1 967 - 2006 Smokeless Tobacco: Never Alcohol Use Standard Drinks/Week Comments Never 0 (1 standard drink = 0.6 oz pur e alcohol) AUDIT-C Answer Date Recorded Q1: How often do you have a drink containing alc ohol? Monthly or less 09/23/2022 Average Number of Drinks Not on file 022 Frequency of Binge Drinking Not on file 02/2022 Personal Safety Answer Date Recorded Have you ever been in or are you currently in a harmful physical or emotional relationship or is someone making you feel afraid or unsafe? 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 Gender Identity Male 01/14/2022 6:30 PM CDT Sexual Orientation Straight 06/15/2021 2: 36 PM CDT Occupation Industry Job Start Date Job End Date Retired Not on file Not on file Not on file documented as of this encounter Plan of Treatment Not on file documented as of this encounter Procedures Procedure Name Priority Date/Time Associated Diagnosis Comments SCAN - LABS 06/17/2024 documented in this encounter Results * SCAN - LABS (06/17/2024) us Provider Scanning Final Result documented in this encounter Visit Diagnoses Not on filedocumented in this encounter Care Teams Environmental Health Nurse Relationship Specialty Start Date End Date Greg Sosa DO [address] [place] [address] PCP - General Internal Medicine 01/29/21 Ayah Mata MD [address] [place] [address] Radiation Oncology 12/25/18 Aft, Nidia Wallace MD PhD [address] [place] [address] Surgeon Surgical Oncology 12/25/18 Maxwell Davis MD PhD [address] [place] [address] Medical Oncologist/Physical Science Teacher Medical Oncology 08/23/22 Pro Davis MD [address] [place] [address] Surgeon Orthopedic Surgery 09/23/22 documented as of this encounter
--- OUTSIDE RECORDS SUMMARY | 2024-11-16 08:49 | XMS_ITS | Encounter Summary ---
Author Organization [facility] Address [address] [place] [address] Phone Care Team Providers Care Java Developer Consultant Name Role Phone Ayah Mata MD Unavailable Aft, Nidia Wallace MD PhD Unavailable [phone] Greg Sosa DO Primary Care Provider [phone] Maxwell Davis MD PhD Unavailable [phone] Pro Davis MD Unavailable [phone] Encounter Details Date Type Department Care Team (Latest Contact Info) Description 07/27/2024 Orders Only [facility] Scanning, Provider Social History Tobacco Use Types Packs/Day Years Used Date Smoking Tobacco: Former Cigarettes 1 39 1 967 - 2006 Passive Smoke Exposure: Past Smokeless Tobacco: Never Alcohol Use Standard Drinks/Week [...] on file 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 Gender Identity Male 01/14/2022 6:30 PM CDT Sexual Orientation Straight 06/15/2021 2: 36 PM CDT Occupation Industry Job Start Date Job End Date Retired Not on file Not on file Not on file documented as of this encounter Plan of Treatment Not on file documented as of this encounter Procedures Procedure Name Priority Date/Time Associated Diagnosis Comments SCAN - LABS 07/27/2024 documented in this encounter Results * SCAN - LABS (07/27/2024) Provider Scanning Final Result documented in this encounter Visit Diagnoses Not on filedocumented in this encounter Care Teams Java Developer Consultant Relationship Specialty Start Date End Date Greg Sosa DO [address] [place] [address] PCP - General Internal Medicine 01/29/21 Ayah Mata MD [address] [place] [address] Radiation Oncology 12/25/18 Aft, Nidia Wallace MD PhD [address] [place] [address] Surgeon Surgical Oncology 12/25/18 Maxwell Davis MD PhD [address] [place] [address] Medical Oncologist/Chronometer Repairer Medical Oncology 08/23/22 Pro Davis MD [address] [place] [address] Surgeon Orthopedic Surgery 09/23/22 documented as of this encounter
--- OUTSIDE RECORDS SUMMARY | 2024-11-16 08:49 | XMS_ITS | Clinical Summary ---
Author Organization [facility] Address [address] [place] [address] Care Team Providers Care Health Commissioner Name Role Phone MegGreg au Maxwell Primary Care Provider Allergies Active Allergy Reactions Criticality Noted Date Comments Atorvastatin Other (See Comments) 03/21/2021 hives Tamsulosin Other (See Comments) 03/21/2021 rash Medications diclofenac sodium (VOLTAREN) 75 mg Tablet, Delayed Release (E.C.) TAKE 1 TABLET BY MOUTH TWICE DAILY 03/17/2021 Active FreeStyle Adali 14 Day Ferriday Misc 12/26/2020 Active FreeStyle Adali 14 Day Sensor Kit USE DIRECTED AND CHANGE EVERY 14 DAYS 12/25/2020 Active gabapentin (NEURONTIN) 300 mg capsule TAKE 2 CAPSULES BY MOUTH AT BEDTIME 03/13/2021 Active hydroCHLOROthia zide (HYDRODIURIL) 12.5 mg tablet Take 12.5 mg by mouth daily. 12/21/2020 Active hydroCHLOROthia zide 25 mg tablet Take 25 mg by mouth daily. 02/05/2021 Active losartan (COZAAR) 100 mg tablet Take 100 mg by mouth daily. 01/31/2021 Active metFORMIN (GLUCOPHAGE) 500 mg tablet TAKE 1 TABLET BY MOUTH TWICE DAILY 01/30/2021 Active moxifloxacin (VIGAMOX) 0.5 % solution INSTILL 1 DROP IN RIGHT EYE THREE TIMES DAILY 02/24/2021 Active prednisoLONE acetate (PRED FORTE) 1 % suspension SHAKE LIQUID AND INSTILL 1 DROP IN RIGHT EYE THREE TIMES DAILY 03/03/2021 Active terbinafine HCL (LamISIL) 250 mg tablet Take 250 mg by mouth daily. 02/13/2021 Active Active Problems No known active problems Social History Tobacco Use Types Packs/Day Years Used Date Smoking Tobacco: Never Smokeless Tobacco: Never Alcohol Use Standard Drinks/Week Comments Not Currently 0 (1 standard drink = 0.6 oz pur e alcohol) Sex and Gender Information Value Date Recorded Sex Assigned at Not on file Legal Sex Male 9:33 AM CDT Gender Identity Not on file Sexual Orientation Not on file Last Filed Vital Signs Vital Sign Reading Time Taken Comments Blood Pressure 143/88 03/21/2021 8:21 AM CDT Pulse 82 03/21/2021 8:21 AM CDT Temperature 36.8 ??C (98.2 ??F) 03/21/2021 8:21 AM CD T Respiratory Rate 18 03/21/2021 8:21 AM CDT Oxygen Saturation 96% 03/21/2021 8:21 AM CDT Inhaled Oxygen Concentration - - Weight 117 kg (258 lb) 03/21/2021 8:21 AM CDT Height 177.8 cm (5' 10 ) 03/21/2021 8:21 AM CDT Body Mass Index 37.02 03/21/2021 8:21 AM CDT Plan of Treatment Health Maintenance Due Date Last Done Comments DTAP/TDAP/TD VACCINES (1 - Tdap) 1969 COLORECTAL SCREENING 1995 Colorectal Cancer Screening 1995 FIT-DNA Q 3 years 1995 FIT/FOBT Q 1 year 1995 Flex Sig/CT Colonography Q 5 years 1995 PNEUMOCOCCAL VACCINE 65+ YEARS (1 of 1 - PCV) 10/14/20 00 ZOSTER VACCINE (1 of 2) 2000 INFLUENZA VACCINE (#1) 2024 RSV VACCINE (60+ or ) (1 - 1-dose 75+ series) 2025 Insurance MEDICARE PART A AND B [facility] FEDERAL MEDICARE [facility] Care Teams Health Commissioner Relationship Specialty Start Date End Date Greg Sosa DO [address] [address] PCP - General Internal Medicine 03/21/21
--- OUTSIDE RECORDS SUMMARY | 2024-11-16 08:49 | XMS_ITS | Encounter Summary ---
Author Organization [facility] Address [address] [place] [address] Phone Care Team Providers Care Relationship Banker Name Role Phone Ayah Mata MD Unavailable Aft, Nidia Wallace MD PhD Unavailable [phone] Greg Sosa DO Primary Care Provider [phone] Maxwell Davis MD PhD Unavailable [phone] Pro Davis MD Unavailable [phone] Encounter Details Date Type Department Care Team (Latest Contact Info) Description 06/17/2024 Orders Only [facility] Scanning, Provider Social History Tobacco Use Types [...] on file 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 Gender Identity Male 01/14/2022 6:30 PM CDT [...] on filedocumented in this encounter Care Teams Relationship Banker Relationship Specialty Start Date End Date Greg Sosa DO [address] [place] [address] PCP - General Internal Medicine 01/29/21 Ayah Mata MD [address] [place] [address] Radiation Oncology 12/25/18 Aft, Nidia Wallace MD PhD [address] [place] [address] Surgeon Surgical Oncology 12/25/18 Maxwell Davis MD PhD [address] [place] [address] Medical Oncologist/Php Architect Medical Oncology 08/23/22 Pro Davis MD [address] [place] [address] Surgeon Orthopedic Surgery 09/23/22 documented as of this encounter
--- OUTSIDE RECORDS SUMMARY | 2024-11-16 08:49 | XMS_ITS ---
Author Organization [facility] Address [address] [place] [address] Care Team Providers Care Kineseologist Name Role Phone Ayah Mata MD Unavailable Aft, Nidia Wallace MD PhD Unavailable [phone] Greg Sosa DO Primary Care Provider [phone] Maxwell Davis MD PhD Unavailable [phone] Pro Davis MD Unavailable [phone] Active Problems Problem Noted Date Diagnosed Date Status post cervical spinal fusion 09/23/2022 Cervical spondylosis with myelopathy 08/23/2022 Overview (08/23/2022): Added automatically from request for surgery [id number] Subjective cognitive impairment 07/08/2022 Assessment & Plan (07/08/2022 4:49 PM CDT): Check TSH, B12 given tremor and gait issues. Will obtain 12/2020 brain MRI for my review. Continue with PT for gait training Recommend discussing with heritage consultant re: depth perception. Refer back to ortho spine to revisit L5-S1 anterolithesis and mod-severe neuroforaminal stenosis. 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 Past Plans No past plan information found. Radiation Treatments * No radiation treatments are documented for this patient in [facility]. Treatments may have been administered in another system. Lifetime Dose Tracking * Chemical Lifetime Dose Automatic Entry Manual Entr y Fluoro Time 1.583 minutes 1.583 minutes 0 minutes Air kerma at the reference point (Ka,r) 79.56 mGy 7 9.56 mGy 0 mGy DLP 1,650 mGycm 1,650 mGycm 0 mGycm
--- OUTSIDE RECORDS SUMMARY | 2024-11-16 08:49 | XMS_ITS | Clinical Summary ---
Author Organization [facility] Address [address] [place] [address] Care Team Providers Care Creative Services Manager Name Role Phone Ayah Mata MD Unavailable Nidia Herrera MD PhD Unavailable [phone] Greg Sosa DO Primary Care Provider [phone] Miguel Davis MD PhD Unavailable [phone] Pro Davis MD Unavailable [phone] Allergies Active Allergy Reactions Criticality Noted Date Comments Atorvastatin Rash Medium 01/03/2016 Medications losartan (COZAAR) 100 mg tablet Take 1 tablet (100 mg total) by mouth every morning Active Xiidra 5 % dropperette Administer 0.1 each (1 drop total) into both eyes 2 (two) times a day 1 Active fish oil-dha-epa 1,200-144-216 mg capsule Take by mouth Active vit C,K-Vs-wouhp-lut ein-zeaxan 250-90-40-1 mg capsule Take by mouth 2 (two) times a day Active Mounjaro 15 mg/0.5 mL pen injector INJECT 15 MG ONCE A WEEK 4 Active Active Problems Problem Noted Date Diagnosed Date Status post cervical spinal fusion 09/23/2022 Cervical spondylosis with myelopathy 08/23/2022 Overview (08/23/2022): Added automatically from request for surgery [id number] Subjective cognitive impairment 07/08/2022 Assessment & Plan (07/08/2022 4:49 PM CDT): Check TSH, B12 given tremor and gait issues. Will obtain 12/2020 brain MRI for my review. Continue with PT for gait training Recommend discussing with shank boner re: depth perception. Refer back to ortho spine to revisit L5-S1 anterolithesis and mod-severe neuroforaminal stenosis. 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, including shoulder (HCC) Discharge Disposition: Discharge to home or self care from Last 3 Months Immunizations Name Administration Dates Next Due Influenza, Quadrivalent, Hig h Dose, Preservative Free, Intrr 07/17/2020 Influenza, Trivalent, High D ose, Split, Preservative Free, Intramuscular 08/10/2019,08/13/2018,08/22/2017,08/13 Influenza, Trivalent, IM (MDV) 08/31/2012 Influenza, Trivalent, Preser vative Free, Intramuscular 07/17/2015,07/29/2013 Moderna SARS-CoV-2 Monovalen t Vaccination (12+ YRS) 01/10/2021,12/13/2020 Pneumococcal Conjugate PCV 13 08/22/2017 Pneumococcal Polysaccharide PPV23 09/22/2018 ZOSTER Recombinant 01/18/2019,10/26/2018 Surgical History Surgery Date Site/Laterality Comments US BONE BIOPSY SUPERFICIAL 04/01/2014 N/A US BONE BIOPSY SUPERFICIAL 12/06/2013 N/A MASS EXCISION FL UPPER GI AIR CONTRAST W KUB 02/21/2021 Left FL UPPER GI AIR CONTRAST W KUB 03/08/2021 Left CATARACT EXTRACTION 03/02/21 & 04/04/21 POSTERIOR LAMINECTOMY / DECO MPRESSION CERVICAL SPINE 09/23/2022 C3-C7 LUMBAR PUNCTURE WO INJECTION, DIAGNOSTIC 04/30/2024 N/A Medical History Medical History Date Comments Hypertension Diabetes mellitus (HCC) Leiomyosarcoma (HCC) Hypogonadism in male BPH (benign prostatic hyperplasia) Macular degeneration Arthritis Kidney stone Osteoporosis Peptic ulceration Plantar fasciitis Obesity MGUS (monoclonal gammopathy of unknown significance) Dizziness GERD (gastroesophageal reflux disease) > 1 year Cataract Surgery in spring / summer 2020 Type 2 diabetes mellitus (HCC) Family History Medical History Relation Name Comments Diabetes Father Kristopher SANONN Unterwagner Hearing loss Father Kristopher SANONN Unterwagner Hypertension Father Kristopher NMN Unterwagner Stroke Father Kristopher SANONN Unterwagner Alzheimer's disease Mother Ashley Lugo Bradley Arthritis Mother Ashley Lugo Bradley Heart disease Mother Ashley Lugo Bradley Macular degeneration Mother Ashley Lugo Crabtre e Essential Tremor Sister Anesthesia problems Neg Hx Relation Name Status Comments Father Kristopher NMN Unterwagner Mother Ashley Huerta Sister Social History Tobacco Use Types Packs/Day Years Used Date Smoking Tobacco: Former Cigarettes 1 39 1 967 - 2006 Passive Smoke Exposure: Past Smokeless Tobacco: Never Tobacco Cessation:Counseling Given: Not Answered Alcohol Use Standard Drinks/Week Comments Never 0 [...] on file Legal Sex Male 8:06 PM RADIATION PROTECTION ENGINEER Gender Identity Male 01/14/2022 6:30 PM CDT Sexual Orientation Straight 06/15/2021 2: 36 PM CDT Occupation Industry Job Start Date Job End Date Retired Not on file Not on file Not on file Obstetrics History Last Filed Vital Signs Vital Sign Reading Time Taken Comments Blood Pressure 119/83 07/01/2024 10:45 AM CDT Pulse 90 07/01/2024 10:45 AM CDT Temperature 36.4 ??C (97.5 ??F) 07/01/2024 1 0:45 AM CDT Respiratory Rate 16 07/01/2024 10:4 5 AM CDT Oxygen Saturation 96% 07/01/2024 10: 45 AM CDT Inhaled Oxygen Concentration - - Weight 113.9 kg (251 lb 3.2 oz) 024 10:45 AM CDT Height 180.3 cm (5' 11 ) 06/16/2024 10: 23 AM CDT Body Mass Index 35.04 06/16/2024 10:23 AM CDT Plan of Treatment Health Maintenance Due Date Last Done Comments Colon Cancer Screening-Colonoscopy 1950 Depression Screening 1950 Hepatitis C Screening 1950 DTaP/Tdap/Td Vaccine (1 - Tdap) 1961 Hepatitis B Screening 1968 Well Visit 65+ 2015 Covid-19 Vaccine (3 - 2023-2 5 season) 2024 01/10/2021, 12/13/2020 Influenza Vaccine (#1) 2024 0, 08/10/2019, 08/13/2018, Additional history exists Fall Risk Assessment 04/30/2025 04/30/2024 Abdominal Aortic Aneurysm (A AA) Screen Completed 01/05/2018, 01/06/2017, 07/08/2016, Additional history exists Pneumococcal vaccine 65+ Completed 09/22/2018, 12/2016 Zoster Vaccine Completed 01/18/2019, 10/26/2018 Prostate Cancer Screening-PSA Discontinued 07/01/2019 Medical Devices Implanted Type Area Commutator Assembler Device Identifier Shelf Expiration Date Model / Serial / Lot [employer] Centerpiece 14mm Lateral Hole Open Door Color Coded Spine [id number] - [id number] Implanted:Qty: 3 on 09/23/2022 by Pro Davis MD at [facility] N/A: Spine Cervical [employer] [id number] / / [employer] Spinal Screw Anterior Cervical Odlp Solid 2.0x5mm [id number] - [id number] Implanted:Qty: 6 on 09/23/2022 by Pro Davis MD at [facility] N/A: Spine Cervical [employer] Inc [id number] / / [employer] Spinal Screw Anterior Cervical Odlp Solid 2.0x7mm [id number] - [id number] Implanted:Qty: 6 on 09/23/2022 by Pro Davis MD at [facility] N/A: Spine Cervical [employer] [id number] / / Procedures Procedure Name Priority Date/Time Associated Diagnosis Comments TRANSTHORACIC ECHO (TTE) COMPLETE W DOPPLER/CF W CONTRAST Routine 09/03/2024 10:28 AM RADIATION PROTECTION ENGINEER 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, including shoulder (HCC) PSA SCREEN Routine 07/01/2019 10:[address] ABDOMEN PELVIS W CONTRAST Routine 01/05/2018 12:26 PM CDT from Last 3 Months or Most Recently Relevant to Health Maintenance Results * TRANSTHORACIC ECHO (TTE) COMPLETE W DOPPLER/CF W CONTRAST (09/03/2024 10:28 AM RADIATION PROTECTION ENGINEER) LV EF 61 % CARDIOREPORT Anatomical Region Laterality Modality Ultrasound 09/03/2024 10:4 5 AM RADIATION PROTECTION ENGINEER Narrative 09/03/2024 2:59 PM RADIATION PROTECTION ENGINEER Patient name: Kristopher Miles Date of test: 09/03/2024 Type of test: TTE w/Doppler Hospital #: 0 Date of : 1950 (M) Community Development Manager: Alma Mahmood RDCS Referring Physician: MIGUEL DAVIS MD Contrast Agent: 0.45 ml Definity Administered, (1.05 ml wasted). Contrast Administered by: Katty Streeter RN Supervised/Interpreted by: Sebastian Edmonds MD Diagnosis: Location: ACB Reason for test: cardiotoxic therapies MV Structure: Normal, ?MV Motion: Normal, ?? Mitral Annulus: Normal AV Structure: tricuspid and is Normal, ?? AV Motion: Normal Aotic root: Normal, ?TM: Normal, ?? PV: Normal Valvular Vegetations: none seen, ?Mass/Thrombi: none seen RA: Normal Measurements: ?M-Mode ?Normal ? Aotic Root: ? <3.8 ? LA: ? <4.0 ? RV: ? <2.8 ? LV(ED): ? <5.7 ? LV(ES): ? Variable ?2D Linear Normal ? Aotic Root: 3.5 cm ?<4.0 ? Ao Indexed: 1.5 cm/M2 <2.0 ? LA: ? <4.0 ? RV: ? 3.0 cm ?<4.2 ? LV(ED): ? 5.2 cm ?<5.9 ? LV(ES): ? 3.6 cm ?<4.0 ?2D Vol. ?? Normal ?Indexed ?? Indexed Normal RA: ? 24.0 ml ? 10.3 ml/M2 ?11-39 ? LA: ? 43.0 ml ? 18.5 ml/M2 ?16-34 ? RV: ? <12.7 ? LV(ED): ? 113.0 ml ??62-150 ?48.7 ml/M2 ?<75 ? LV(ES): ? 44.0 ml ?? 21-61 ? 18.9 ml/M2 ?<32 ?3D Vol. ? Indexed Normal LV(ED): ?<75 ? LV(ES): ?<32 ? LV EF: 61 % ?? (Normal: >=52%) ?? LV Septum: 1.1 cm ?(Normal: <1.0 cm) Wall Motion Scoring (1=Normal 2=Hypo 3=Akinetic 4=Dyskin./Aneurysm 0=Not visualized) Parasternal Long [place]:MAS=1 BAS=1 MIL=1 RONN=1 Parasternal Short [place]:MAS=1 MIS=1 PA=1 MIL=1 MAL=1 MA=1 Apical 4 Chambers:=1 MIS=1 BIS=1 BAL=1 MAL=1 AL=1 AC=1 Apical 2 Chambers:AI=1 PA=1 BI=1 BA=1 MA=1 AA=1 AC=1 LV Global Longitudinal Strain: -13.7% ??(Normal <-17%) RV Global Longitudinal Strain: -13.4% ??(Normal <-17%) LV Function: Normal LV Ejection Fraction, (EF=52-72%) RV Function: Normal Septal Motion: Normal Pericardial Effusion: none seen Atrial Septum: Normal DOPPLER/COLOR FLOW DOPPLER RESULTS: Diastolic Function: Grade I, altered relax. w/N. LA pres. Tricuspid Valve: normal TV Pulmonic Valve: normal PV AV Regurgitation: No AR seen AV Stenosis: no AV Area: ??cm2 AV Pressure Gradient (mmHg): Mean: 0, Peak:0 MV Regurgitation: No MR seen MV Stenosis: no MS MV Area: ??cm2 MV Pressure Gradient (mmHg): Mean: 0 MV ERO: ??cm Regurg. Vol.: ??ml/beat Regurg. Frac.: ??% PA Pressure: ??mmHg DOPPLER/COLOR FOLOW DOPPLER COMMENTS: No AR seen, No MR seen, no , no MS, normal TV, normal PV. Diastolic function: Grade I, altered relax. w/N. LA pres. CONTRAST: 0.45 ml Definity Administered, (1.05 ml wasted). SUMMARY: Normal LV and RV size and systolic function. LVEF 61%. Normal LV wall thickness/mass. Reduced global LV myocardial longitudinal function and strain pattern (-13.7% probably due to technique). ??LA is normal. Normal RV cavity size. No significant valvular abnormalities noted. Grade I diastolic function c/w normal mean LA pressure. No adequate TR to estimate PA pressure. ??Normal Inferior vena cava. Normal aorta. LVEF remains stable. Confirmed on ??09/03/2024 - 14:59:37 by Sebastian Edmonds MD By signing this report, the attending furniture sander certifies that he or she has personally supervised and interpreted the echocardiogram and has reviewed and or edited and agrees with the written comments contained within the report. Procedure Note Sebastian Gardner MD - 09/03/2024 Patient name: Kristopher Miles Date of test: 09/03/2024 Type of test: TTE w/Doppler Hospital #: 0 Date of : 1950 (M) Community Development Manager: Alma Mahmood [facility] Referring Physician: MIGUEL DAVIS MD Contrast Agent: 0.45 ml Definity Administered, (1.05 ml wasted). Contrast Administered by: Katty Streeter RN Supervised/Interpreted by: Sebastian Edmonds MD Diagnosis: Location: ACB Reason for test: cardiotoxic therapies MV Structure: Normal, MV Motion: Normal, Mitral Annulus: Normal AV Structure: tricuspid and is Normal, AV Motion: Normal Aotic root: Normal, TM: Normal, PV: Normal Valvular Vegetations: none seen, Mass/Thrombi: none seen RA: Normal Measurements: M-Mode Normal Aotic Root: <3.8 LA: <4.0 RV: <2.8 LV(ED): <5.7 LV(ES): Variable 2D Linear Normal Aotic Root: 3.5 cm <4.0 Ao Indexed: 1.5 cm/M2 <2.0 LA: <4.0 RV: 3.0 cm <4.2 LV(ED): 5.2 cm <5.9 LV(ES): 3.6 cm <4.0 2D Vol. Normal Indexed Indexed Normal RA: 24.0 ml 10.3 ml/M2 11-39 LA: 43.0 ml 18.5 ml/M2 16-34 RV: <12.7 LV(ED): 113.0 ml 62-150 48.7 ml/M2 <75 LV(ES): 44.0 ml 21-61 18.9 ml/M2 <32 3D Vol. Indexed Normal LV(ED): <75 LV(ES): <32 LV EF: 61 % (Normal: >=52%) LV Septum: 1.1 cm (Normal: <1.0 cm) Wall Motion Scoring (1=Normal 2=Hypo 3=Akinetic 4=Dyskin./Aneurysm 0=Not visualized) Parasternal Long [place]:MAS=1 BAS=1 MIL=1 RONN=1 Parasternal Short [place]:MAS=1 MIS=1 PA=1 MIL=1 MAL=1 MA=1 Apical 4 Chambers:=1 MIS=1 BIS=1 BAL=1 MAL=1 AL=1 AC=1 Apical 2 Chambers:AI=1 PA=1 BI=1 BA=1 MA=1 AA=1 AC=1 LV Global Longitudinal Strain: -13.7% (Normal <-17%) RV Global Longitudinal Strain: -13.4% (Normal <-17%) LV Function: Normal LV Ejection Fraction, (EF=52-72%) RV Function: Normal Septal Motion: Normal Pericardial Effusion: none seen Atrial Septum: Normal DOPPLER/COLOR FLOW DOPPLER RESULTS: Diastolic Function: Grade I, altered relax. w/N. LA pres. Tricuspid Valve: normal TV Pulmonic Valve: normal PV AV Regurgitation: No AR seen AV Stenosis: no AV Area: cm2 AV Pressure Gradient (mmHg): Mean: 0, Peak:0 MV Regurgitation: No MR seen MV Stenosis: no MS MV Area: cm2 MV Pressure Gradient (mmHg): Mean: 0 MV ERO: cm Regurg. Vol.: ml/beat Regurg. Frac.: % PA Pressure: mmHg DOPPLER/COLOR FOLOW DOPPLER COMMENTS: No AR seen, No MR seen, no , no MS, normal TV, normal PV. Diastolic function: Grade I, altered relax. w/N. LA pres. CONTRAST: 0.45 ml Definity Administered, (1.05 ml wasted). SUMMARY: Normal LV and RV size and systolic function. LVEF 61%. Normal LV wall thickness/mass. Reduced global LV myocardial longitudinal function and strain pattern (-13.7% probably due to technique). LA is normal. Normal RV cavity size. No significant valvular abnormalities noted. Grade I diastolic function c/w normal mean LA pressure. No adequate TR to estimate PA pressure. Normal Inferior vena cava. Normal aorta. LVEF remains stable. Confirmed on 09/03/2024 14:59:37 by Sebastian Edmonds MD By signing this report, the attending furniture sander certifies that he or she has personally supervised and interpreted the echocardiogram and has reviewed and or edited and agrees with the written comments contained within the report. us Miguel Davis MD PhD CV ECHO PROCEDURES Final Result * PSA screen (07/01/2019 10:47 AM CDT) PSA-Total 0.64 <=5.40 ng/mL [facility] Comment: Interpretive Data ?AGE ? SEX ?REFERENCE INTERVAL 0 minutes-150 years ?Female ?None 0 minutes-49 years ? Male ?None ? 50-59 years ? Male ?0-3.90 ? 60-69 years ? Male ?0-5.40 ? 70-79 years ? Male ?0-6.20 ? 80-150 years ?Male ?0-6.20 Current interpretive data last revised 2018. Blood specimen (specimen) 07/01/2019 10:47 AM CDT 07/01/2019 11:38 AM CDT us Callum Ponce MD LAB BLOOD ORDERABLES Final Resu lt [facility] [address] [place] [address] * CT Abdomen Pelvis W Contrast (01/05/2018 12:26 PM CDT) Anatomical Region Laterality Modality Body N/A Computed Tomogra phy 01/05/2018 12:2 6 PM CDT Narrative 01/05/2018 12:54 PM CDT JOSELO MARCUS M.D. FINAL REPORT ACC# ??Date Time ??Exam [id number] Jan 05, 2018 07:26:[id number] Chest with contrast [id number] Jan 05, 2018 07:26:[id number] Abd & ??Pelvis with cont EXAMINATION: ??CT CHEST, ABDOMEN AND PELVIS WITH INTRAVENOUS CONTRAST TECHNIQUE: Standard CT of the chest, abdomen and pelvis was performed after the administration of intravenous contrast. ??Studies were performed after the administration of the following amount of Optiray 350: 100 mL HISTORY: Leiomyosarcoma. FINDINGS: Comparison is made to a prior study from January 06, 2017. Chest: No supraclavicular, axillary or mediastinal lymphadenopathy is seen. Again seen is a lenticular fluid collection posterior to the right scapula with some areas of high attenuation internally. On the prior study this measured 3.7 x 7.4 cm. On today's study is slightly larger measuring 4 x 8.5 cm. There is some underlying erosion of the scapula as well as a focal area of calcification which are unchanged. No pleural or pericardial effusion is seen. The heart size is normal. The thoracic aorta is normal in caliber with minimal atherosclerosis. The lung windows do not demonstrate any pulmonary nodule or consolidation. Note is made of very mild peripheral reticulation which is seen bilaterally and is unchanged. This may represent some very mild underlying fibrosis. Abdomen/pelvis: The spleen, pancreas are normal. Dense seen is right adrenal gland nodularity without change compared to the prior study which may represent hyperplasia or multiple adenomata. The liver is unremarkable. The gallbladder is decompressed. Both kidneys are symmetric without hydronephrosis. Although the abdominal aorta is atherosclerotic, it is normal in caliber. The colon and small bowel are normal in their appearance. By report, the patient has a history of urolithiasis. However no urolithiasis seen on this study. The urinary bladder is decompressed. 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 IMPRESSION: ??1. No significant change when compared to the prior study other than for slight increase in size of a fluid collection posterior to the right scapula. 2. Unchanged adrenal gland nodularity. 3. No abdominal or pelvic metastases. Electronically signed by: Joselo Marcus M.D. Requested By: MIGUEL DAVIS MD, PHD Dictated By: ?? JOSELO MARCUS M.D. ??on Jan 05 2018 ??7:51A This document has been electronically signed by: JOSELO MARCUS M.D. on Jan 05 2018 ??7:51A [id number] MARCUS M.D. FINAL REPORT Attending: ??HARRY SUN, ??MIGUEL Requesting: ??HARRY SUN, ??MIGUEL Requesting Fax: ?? Attending Fax: ?? Attending ID: ??[id number] Requesting ID: ??[id number] Report To 1 ID: ??[id number] ? Report To 1 Name: ??, ?? Report To 1 FAX: ?? NextGen Order #: ?? Procedure Note Miscellaneous, Not In File - 01/05/2018 JOSELO MARCUS M.D. FINAL REPORT ACC# Date Time Exam [id number] Jan 05, 2018 07:26:[id number] Chest with contrast [id number] Jan 05, 2018 07:26:[id number] Abd & Pelvis with cont EXAMINATION: CT CHEST, ABDOMEN AND PELVIS WITH INTRAVENOUS CONTRAST TECHNIQUE: Standard CT of the chest, abdomen and pelvis was performed after the administration of intravenous contrast. Studies were performed after the administration of the following amount of Optiray 350: 100 mL HISTORY: Leiomyosarcoma. FINDINGS: Comparison is made to a prior study from January 06, 2017. Chest: No supraclavicular, axillary or mediastinal lymphadenopathy is seen. Again seen is a lenticular fluid collection posterior to the right scapula with some areas of high attenuation internally. On the prior study this measured 3.7 x 7.4 cm. On today's study is slightly larger measuring 4 x 8.5 cm. There is some underlying erosion of the scapula as well as a focal area of calcification which are unchanged. No pleural or pericardial effusion is seen. The heart size is normal. The thoracic aorta is normal in caliber with minimal atherosclerosis. The lung windows do not demonstrate any pulmonary nodule or consolidation. Note is made of very mild peripheral reticulation which is seen bilaterally and is unchanged. This may represent some very mild underlying fibrosis. Abdomen/pelvis: The spleen, pancreas are normal. Dense seen is right adrenal gland nodularity without change compared to the prior study which may represent hyperplasia or multiple adenomata. The liver is unremarkable. The gallbladder is decompressed. Both kidneys are symmetric without hydronephrosis. Although the abdominal aorta is atherosclerotic, it is normal in caliber. The colon and small bowel are normal in their appearance. By report, the patient has a history of urolithiasis. However no urolithiasis seen on this study. The urinary bladder is decompressed. 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 IMPRESSION: 1. No significant change when compared to the prior study other than for slight increase in size of a fluid collection posterior to the right scapula. 2. Unchanged adrenal gland nodularity. 3. No abdominal or pelvic metastases. Electronically signed by: Joselo Marcus M.D. Requested By: MIGUEL DAVIS MD, PHD Dictated By: JOSELO MARCUS M.D. on Jan 05 2018 7:51A This document has been electronically signed by: JOSELO MARCUS M.D. on Jan 05 2018 7:51A [id number] MARCUS M.D. FINAL REPORT Attending: MIGUEL DAVIS Requesting: MIGUEL DAVIS Requesting Fax: Attending Fax: Attending ID: [id number] Requesting ID: [id number] Report To 1 ID: [id number] Report To 1 Name: , Report To 1 FAX: NextGen Order #: Miguel Davis MD PhD IMG CT PROCEDURES F inal Result from Last 3 Months or Most Recently Relevant to Health Maintenance Insurance MEDICARE [facility] MEDICARE [facility] Member Subscriber Plan / Payer (Ef fective 2005-Present) Name:Kristopher Miles Relation to Subscriber:Self Name:Kristopher Miles Payer ID:[id number] (NAIC) Group ID:[id number] Type:TaKaDu Address: [address] MEDICARE [facility] Advance Directives For more information, please contact: [phone] Documents on File Type Date Recorded Patient Office Administrator Expl carlee ADVANCE DIRECTIVE 09/30/2022 10:34 AM POW ER OF VALIDATION ENGINEER-MEDICAL * Full Code (Latest Code Status on File) Date Activated Date Inactivated Comments 09/23/2022 4:27 PM 09/27/2022 6:27 PM Care Teams Creative Services Manager Relationship Specialty Start Date End Date Greg Sosa DO [address] [place] [address] PCP - General Internal Medicine 01/29/21 Ayah Mata MD [address] [place] [address] Radiation Oncology 12/25/18 Aft, Nidia Wallace MD PhD [address] [place] [address] Surgeon Surgical Oncology 12/25/18 Miguel Davis MD PhD [address] [place] [address] Medical Oncologist/Die Engraving Supervisor Medical Oncology 08/23/22 Pro Davis MD [address] [facility] [address] [place] [address] Surgeon Orthopedic Surgery 09/23/22
--- OUTSIDE RECORDS SUMMARY | 2024-11-16 08:49 | XMS_ITS | Encounter Summary ---
Author Organization [facility] Address [address] [place] [address] Phone Care Team Providers Care Pharmacogeneticist Name Role Phone Maxwell Davis MD PhD Primary Care Provi ramya Ayah Mata MD Unavailable Greg Sosa DO Unavailable [phone] Aft, Nidia Wallace MD PhD Unavailable [phone] Greg Sosa DO Primary Care Provider [phone] Dalton Grimm MD Unavailable Maxwell Davis MD PhD Unavailable [phone] Pro Davis MD Unavailable [phone] Encounter Details Date Type Department Care Team (Latest Contact Info) Description 01/02/2021 Orders Only [facility] Scanning, Provider Social History Tobacco Use Types Packs/Day Years Used Date Smoking Tobacco: Former Smokeless Tobacco: Never Alcohol Use Standard Drinks/Week Comments Never 0 (1 standard drink = 0.6 oz pur e alcohol) AUDIT-C Answer Date Recorded Frequency of Alcohol Consumption Never 06/14/2019 Average Number of Drinks Not on file 019 Frequency of Binge Drinking Not on file 05/21 Sex and Gender Information Value Date Recorded Sex Assigned at Not on file Legal Sex Male 8:06 PM VOICER Gender Identity Male 01/14/2022 6:30 PM CDT Sexual Orientation Straight 06/15/2021 2: 36 PM CDT documented as of this encounter Plan of Treatment Not on file documented as of this encounter Procedures Procedure Name Priority Date/Time Associated Diagnosis Comments SCAN - LABS 01/02/2021 documented in this encounter Results * SCAN - LABS (01/02/2021) us Provider Scanning Final Result documented in this encounter Visit Diagnoses Not on filedocumented in this encounter Care Teams Pharmacogeneticist Relationship Specialty Start Date End Date Maxwell Davis MD PhD [address] [place] [address] PCP - General 01/12/18 01/28/21 Greg Sosa, [address] [place] [address] PCP - General Internal Medicine 01/29/21 Ayah Mata MD [address] [place] [address] Radiation Oncology 12/25/18 Greg Sosa, [address] [place] [address] Referring Physician Internal Medicine 12/25/18 01/28/21 Aft, Nidia Wallace MD PhD [address] [place] [address] Surgeon Surgical Oncology 12/25/18 Dalton Grimm MD [address] [place] [address] Consulting Physician Orthopedic Surgery 07/21/2209/08 Maxwell Davis MD PhD [address] [facility] [address] [place] [address] Medical Oncologist/Family Engagement Specialist Medical Oncology 08/23/22 Pro Davis MD [address] [facility] [address] [place] [address] Surgeon Orthopedic Surgery 09/23/22 documented as of this encounter
--- OUTSIDE RECORDS SUMMARY | 2024-11-16 08:49 | XMS_ITS | Referral Summary ---
Author Organization [facility] Address [address] [place] [address] Care Team Providers Care Auto Repair Technician Name Role Phone Ayah Mata MD Unavailable Aft, Nidia Wallace MD PhD Unavailable [phone] Greg Sosa DO Primary Care Provider [phone] Miguel Davis MD PhD Unavailable [phone] Pro Davis MD Unavailable [phone] Encounters Date Type Department Care Team Description 09/03/2024 9:48 AM WATERWORKS PUMP STATION OPERATOR - 09/03/2024 11:59 PM WATERWORKS PUMP STATION OPERATOR Hospital Encounter [facility] - Cardiac Diagnostic Lab [address] 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, including shoulder (HCC) Discharge Disposition: Discharge to home or self care from Last 3 Months Allergies Active Allergy Reactions Criticality Noted Date Comments Atorvastatin Rash Medium 01/03/2016 Medications losartan (COZAAR) 100 mg tablet Take 1 tablet (100 mg total) by mouth every morning Active Xiidra 5 % dropperette Administer 0.1 each (1 drop total) into both eyes 2 (two) times a day 1 Active fish oil-dha-epa 1,200-144-216 mg capsule Take by mouth Active vit C,X-Th-yshgk-lut ein-zeaxan 250-90-40-1 mg capsule Take by mouth 2 (two) times a day Active Mounjaro 15 mg/0.5 mL pen injector INJECT 15 MG ONCE A WEEK 4 Active Active Problems Problem Noted Date Diagnosed Date Status post cervical spinal fusion 09/23/2022 Cervical spondylosis with myelopathy 08/23/2022 Overview (08/23/2022): Added automatically from request for surgery [id number] Subjective cognitive impairment 07/08/2022 Assessment & Plan (07/08/2022 4:49 PM CDT): Check TSH, B12 given tremor and gait issues. Will obtain 12/2020 brain MRI for my review. Continue with PT for gait training Recommend discussing with laborer tanbark re: depth perception. Refer back to ortho spine to revisit L5-S1 anterolithesis and mod-severe neuroforaminal stenosis. 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/19/2011 Mass of skin 03/13/2011 Immunizations Name Administration Dates Next Due Influenza, Quadrivalent, Hig h Dose, Preservative Free, Intrr 07/17/2020 Influenza, Trivalent, High D ose, Split, Preservative Free, Intramuscular 08/10/2019,08/13/2018,08/22/2017,08/13 Influenza, Trivalent, IM (MDV) 08/31/2012 Influenza, Trivalent, Preser vative Free, Intramuscular 07/17/2015,07/29/2013 Moderna SARS-CoV-2 Monovalen t Vaccination (12+ YRS) 01/10/2021,12/13/2020 Pneumococcal Conjugate PCV 13 08/22/2017 Pneumococcal Polysaccharide PPV23 09/22/2018 ZOSTER Recombinant 01/18/2019,10/26/2018 Social History Tobacco Use Types Packs/Day Years [...] on file Legal Sex Male 8:06 PM WATERWORKS PUMP STATION OPERATOR Gender Identity Male 01/14/2022 6:30 PM CDT Sexual Orientation Straight 06/15/2021 2: 36 PM CDT Occupation Industry Job Start Date Job End Date Retired Not on file Not on file Not on file Last Filed Vital Signs [...] 06/16/2024 10:23 AM CDT Plan of Treatment Not on file Medical Devices Implanted Type Area Mathematician Device Identifier Shelf Expiration Date Model / Serial / Lot [employer] Centerpiece 14mm Lateral Hole Open Door Color Coded Spine [id number] - [id number] Implanted:Qty: 3 on 09/23/2022 by Pro Davis MD at [facility] N/A: Spine Cervical [employer] [id number] / / [employer] Spinal Screw Anterior Cervical Odlp Solid 2.0x5mm [id number] - [id number] Implanted:Qty: 6 on 09/23/2022 by Pro Davis MD at [facility] N/A: Spine Cervical [employer] [id number] / / [employer] Spinal Screw Anterior Cervical Odlp Solid 2.0x7mm [id number] - [id number] Implanted:Qty: 6 on 09/23/2022 by Pro Davis MD at [facility] N/A: Spine Cervical [employer] [id number] / / Procedures Procedure Name Priority Date/Time Associated Diagnosis Comments TRANSTHORACIC ECHO (TTE) COMPLETE W DOPPLER/CF W CONTRAST Routine 09/03/2024 10:28 AM WATERWORKS PUMP STATION OPERATOR 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, including shoulder (HCC) PSA SCREEN Routine 07/01/2019 10:[address] ABDOMEN PELVIS W CONTRAST Routine 01/05/2018 12:26 PM CDT from Last 3 Months or Most Recently Relevant to Health Maintenance Results * TRANSTHORACIC ECHO (TTE) COMPLETE W DOPPLER/CF W CONTRAST (09/03/2024 10:28 AM WATERWORKS PUMP STATION OPERATOR) LV EF 61 % CARDIOREPORT Anatomical Region Laterality Modality Ultrasound 09/03/2024 10:4 5 AM WATERWORKS PUMP STATION OPERATOR Narrative 09/03/2024 2:59 PM WATERWORKS PUMP STATION OPERATOR Patient name: Kristopher Miles Date of test: 09/03/2024 Type of test: TTE w/Doppler Hospital #: 0 Date of : 1950 (M) Proof Plate Maker: Alma Mahmood CHING Referring Physician: MIGUEL DAVIS MD Contrast Agent: [...] 2=Hypo 3=Akinetic 4=Dyskin./Aneurysm 0=Not visualized) Parasternal Long [place]:MAS=1 BAS=1 MIL=1 RONN=1 Parasternal Short [place]:MAS=1 MIS=1 MA=1 MIL=1 MAL=1 MA=1 Apical 4 Chambers:=1 MIS=1 BIS=1 BAL=1 MAL=1 AL=1 AC=1 Apical 2 Chambers:AI=1 MA=1 BI=1 BA=1 MA=1 AA=1 AC=1 LV Global [...] MD By signing this report, the attending cook at school certifies that he or she has personally supervised and interpreted the echocardiogram and has reviewed and or edited and agrees with the written comments contained within the report. Procedure Note Kendra, Sebastian Russell MD - 09/03/2024 Patient name: Kristopher Miles Date of test: 09/03/2024 Type of test: TTE w/Doppler [facility] #: 0 Date of : 1950 (M) Proof Plate Maker: Alma Mahmood CHING Referring Physician: MIGUEL DAVIS MD Contrast Agent: [...] 2=Hypo 3=Akinetic 4=Dyskin./Aneurysm 0=Not visualized) Parasternal Long [place]:MAS=1 BAS=1 MIL=1 RONN=1 Parasternal [place]:MAS=1 MIS=1 MA=1 MIL=1 MAL=1 MA=1 Apical 4 Chambers:=1 MIS=1 BIS=1 BAL=1 MAL=1 AL=1 AC=1 Apical 2 Chambers:AI=1 MA=1 BI=1 BA=1 MA=1 AA=1 AC=1 LV Global [...] aorta. LVEF remains stable. Confirmed on 09/03/2024 - 14:59:37 by Sebastian Edmonds MD By signing this report, the attending cook at school certifies that he or she has personally supervised and interpreted the echocardiogram and has reviewed and or edited and agrees with the written comments contained within the report. us Miguel Davis MD PhD CV ECHO PROCEDURES Final Result * PSA screen (07/01/2019 10:47 AM CDT) PSA-Total 0.64 <=5.40 ng/mL [facility] Comment: Interpretive Data ?AGE ? SEX [...] LAB BLOOD ORDERABLES Final Resu lt [facility] [address] [place] [address] * CT Abdomen Pelvis W Contrast (01/05/2018 12:26 PM CDT) Anatomical Region Laterality Modality Body N/A Computed Tomogra phy 01/05/2018 12:2 6 PM CDT Narrative 01/05/2018 12:54 PM CDT JOSELO SCHMIDT M.D. FINAL REPORT ACC# ??Date Time ??Exam [id number] Jan 05, 2018 07:26:[id number] Chest with contrast [id number] Jan 05, 2018 07:26:[id number] Abd & ??Pelvis with cont EXAMINATION: [...] or pelvic metastases. Electronically signed by: Joselo Schmidt M.D. Requested By: MIGUEL DAVIS MD, PHD Dictated By: ?? JOSELO SCHMIDT M.D. ??on Jan 05 2018 ??7:51A This document has been electronically signed by: JOSELO SCHMIDT M.D. on Jan 05 2018 ??7:51A [id number] SCHMIDT M.D. FINAL REPORT Attending: ??HARRY SUN, ??MIGUEL Requesting: ??HARRY SUN, ??MIGUEL Requesting Fax: ?? Attending Fax: ?? Attending ID: ??[id number] Requesting ID: ??[id number] Report To 1 ID: ??[id number] ? Report To 1 Name: ??, ?? Report To 1 FAX: ?? NextGen Order #: ?? Procedure Note Miscellaneous, Not In File - 01/05/2018 JOSELO SCHMIDT M.D. FINAL REPORT ACC# Date Time Exam [id number] Jan 05, 2018 07:26:[id number] Chest with contrast [id number] Jan 05, 2018 07:26:[id number] Abd & Pelvis with cont EXAMINATION: [...] or pelvic metastases. Electronically signed by: Joselo Schmidt M.D. Requested By: MIGUEL DAVIS MD, PHD Dictated By: JOSELO SCHMIDT M.D. on Jan 05 2018 7:51A This document has been electronically signed by: JOSELO SCHMIDT M.D. on Jan 05 2018 7:51A [id number] SCHMIDT M.D. FINAL REPORT Attending: MIGUEL DAVIS Requesting: MGIUEL DAVIS Requesting Fax: Attending Fax: Attending ID: [id number] Requesting ID: [id number] Report To 1 ID: [id number] Report To 1 Name: , Report To 1 FAX: NextGen Order #: Miguel Davis MD PhD IMG CT PROCEDURES F inal Result from Last 3 Months or Most Recently Relevant to Health Maintenance Insurance MEDICARE [facility] MEDICARE [facility] Member Subscriber Plan / Payer (Ef fective 2005-Present) Name:Kristopher Miles Relation to Subscriber:Self Name:Sydnieyelenadulce maria Kristopher Peter Payer ID:[id number] (NAIC) Group ID:[id number] Type:[employer] Address: [address] TRADITIONAL MEDICARE [facility] Advance Directives For more information, please contact: [phone] Documents on File Type Date Recorded Patient Magnetic Doctor Expl anation ADVANCE DIRECTIVE 09/30/2022 10:34 AM POW ER OF METAL [employer] * Full Code (Latest Code Status on File) Date Activated Date Inactivated Comments 09/23/2022 4:27 PM 09/27/2022 6:27 PM Care Teams Auto Repair Technician Relationship Specialty Start Date End Date Greg Sosa DO [address] [place] [address] PCP - General Internal Medicine 01/29/21 Ayah Mata MD [address] [place] [address] Radiation Oncology 12/25/18 Aft, Nidia Wallace MD PhD [address] [place] [address] Surgeon Surgical Oncology 12/25/18 Miguel Davis MD PhD [address] [place] [address] Medical Oncologist/Residential Sales Manager Medical Oncology 08/23/22 Pro Davis MD [address] [facility] [address] [place] [address] Surgeon Orthopedic Surgery 09/23/22
[2024-11-18 11:33] LABS: Kappa\\Lambda Light Chains 0.16 (0.26-1.65)
== END 2024-11-16 08:36 | disposition home or self-care (01) ==
LOC: ANHGOSHLAB 08:37
PROVIDERS: PCP Nurse Practitioner; Visit Provider Internal Medicine Hematology
DX: D47.2 Monoclonal gammopathy (principal)
CPT/HCPCS: 36415; 83883

== ENCOUNTER 2024-12-24 07:53 | Outpatient (CLI) | payer MEDICARE, BC, SELFPAY ==
--- OUTSIDE RECORDS SUMMARY | 2024-12-24 08:01 | XMS_ITS | Encounter Summary ---
Author Organization [facility] Address [address] [place] [address] Phone Care Team Providers Care First Breaker Feeder Name Role Phone Ayah Mata MD Unavailable Aft, Nidia Wallace MD PhD Unavailable [phone] Greg Sosa DO Primary Care Provider [phone] Maxwell Davis MD PhD Unavailable [phone] Pro Davis MD Unavailable [phone] Encounter Details Date Type Department Care Team (Latest Contact Info) Description 07/27/2024 Orders Only [facility] Scanning, Provider Social History Tobacco [...] on file Legal Sex Male 8:06 PM 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 AND 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 Gender Identity Male 01/14/2022 6:30 PM CDT [...] on filedocumented in this encounter Care Teams First Breaker Feeder Relationship Specialty Start Date End Date Greg Sosa DO [address] [place] [address] PCP - General Internal Medicine 01/29/21 Ayah Mata MD [address] [place] [address] Radiation Oncology 12/25/18 Aft, Nidia Wallace MD PhD [address] [place] [address] Surgeon Surgical Oncology 12/25/18 Maxwell Davis MD PhD [address] [place] [address] Medical Oncologist/Atomic Spectroscopist Medical Oncology 08/23/22 Pro Davis MD [address] [place] [address] Surgeon Orthopedic Surgery 09/23/22 documented as of this encounter
--- OUTSIDE RECORDS SUMMARY | 2024-12-24 08:01 | XMS_ITS ---
Author Organization [facility] Address [address] [place] [address] Care Team Providers Care High Speed Warper Tender Name Role Phone Ayah Mata MD Unavailable Aft, Nidia Wallace MD PhD Unavailable [phone] Greg Sosa DO Primary Care Provider [phone] Maxwell Davis MD PhD Unavailable [phone] Pro Davis MD Unavailable [phone] Active Problems Problem Noted Date Diagnosed Date Status post cervical spinal fusion 09/23/2022 Cervical spondylosis with myelopathy 08/23/2022 Overview (08/23/2022): Added automatically from request for surgery [id number] Subjective cognitive impairment 07/08/2022 Assessment & Plan (07/08/2022 4:49 PM CDT): Check TSH, B12 given tremor and gait issues. Will obtain 12/2020 brain MRI for my review. Continue with PT for gait training Recommend discussing with store clerk checker re: depth perception. Refer back to ortho spine to revisit L5-S1 anterolithesis and mod-severe neuroforaminal stenosis. 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 Past Treatment and Therapy Plans No past plan information found. Lifetime Dose Tracking * Chemical Lifetime Dose Automatic Entry Manual Entr y Fluoro Time 1.583 minutes 1.583 minutes 0 minutes Air kerma at the reference point (Ka,r) 79.56 mGy 7 9.56 mGy 0 mGy DLP 1,650 mGycm 1,650 mGycm 0 mGycm
--- OUTSIDE RECORDS SUMMARY | 2024-12-24 08:01 | XMS_ITS | Clinical Summary ---
Author Organization [facility] Address [address] [place] [address] Care Team Providers Care Information Systems Auditor Name Role Phone Ayah Mata MD Unavailable Nidia Herrera MD PhD Unavailable [phone] Greg Sosa DO Primary Care Provider [phone] Maxwell Davis MD PhD Unavailable [phone] Pro Davis MD Unavailable [phone] Allergies Active Allergy Reactions Criticality Noted Date Comments Atorvastatin Rash Medium 01/03/2016 Medications losartan (COZAAR) 100 mg tablet Take 1 tablet (100 mg total) by mouth every morning Active Xiidra 5 % dropperette Administer 0.1 each (1 drop total) into both eyes 2 (two) times a day 1 Active fish oil-dha-epa 1,200-144-216 mg capsule Take by mouth Active vit C,W-Zp-vcuxx-lut ein-zeaxan 250-90-40-1 mg capsule Take by mouth 2 (two) times a day Active Mounjaro 15 mg/0.5 mL pen injector INJECT 15 MG ONCE A WEEK 4 Active Active Problems Problem Noted Date Diagnosed Date Status post cervical spinal fusion 09/23/2022 Cervical spondylosis with myelopathy 08/23/2022 Overview (08/23/2022): Added automatically from request for surgery [id number] Subjective cognitive impairment 07/08/2022 Assessment & Plan (07/08/2022 4:49 PM CDT): Check TSH, B12 given tremor and gait issues. Will obtain 12/2020 brain MRI for my review. Continue with PT for gait training Recommend discussing with senior account representative re: depth perception. Refer back to ortho spine to revisit L5-S1 anterolithesis and mod-severe neuroforaminal stenosis. 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/19/2011 Mass of skin 03/13/2011 Immunizations Immunization Administration Dates Next Due Influenza, Quadrivalent, Hig [...] Father Kristopher SANONN Unterwagner Hypertension Father Kristopher SANONN Unterwagner Stroke Father Kristopher SANONN Unterwagner Alzheimer's disease Mother Ashley Huerta Arthritis Mother Ashley Huerta Heart disease Mother Ashley Huerta Macular degeneration Mother Ashley May Essential Tremor Sister Anesthesia problems Neg Hx Relation Name Status Comments Father Kristopher FROST Unterwagner Mother Ashley Huerta Sister Social History [...] on file Legal Sex 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 Gender Identity Male 01/14/2022 6:30 PM CDT Sexual Orientation Straight 06/15/2021 2: 36 PM CDT Occupation Industry Job Start Date Job End Date Retired Not on file Not on file Not on file Obstetrics History Last Filed Vital Signs Vital Sign Reading Time Taken Comments Blood Pressure 119/83 07/01/2024 10:45 AM CDT Pulse 90 07/01/2024 10:45 AM CDT Temperature 36.4 C (97.5 F) 07/01/2024 10:45 AM CDT Respiratory Rate 16 07/01/2024 10:4 [...] 2024 01/10/2021, 12/13/2020 Influenza Vaccine (#1) 2024 , 08/10/2019, 08/13/2018, Additional history exists Fall Risk Assessment 04/30/2025 04/30/2024 Abdominal Aortic Aneurysm (A AA) Screen Completed 01/05/2018, 01/06/2017, 07/08/2016, Additional history exists Pneumococcal vaccine 65+ Completed 09/22/2018, 12/2016 Zoster Vaccine Completed 01/18/2019, 10/26/2018 Prostate Cancer Screening-PSA Discontinued 07/01/2019 Medical Devices Implanted Type Area Electric Detector Operator Device Identifier Shelf Expiration Date Model / Serial / Lot Medtronic Inc Centerpiece 14mm Lateral Hole Open Door Color Coded Spine [id number] - [id number] Implanted:Qty: 3 on 09/23/2022 by Pro Davis MD at [facility] N/A: Spine Cervical Med[employer]onic Inc [id number] / / Medtronic Inc Spinal Screw Anterior Cervical Odlp Solid 2.0x5mm [id number] - [id number] Implanted:Qty: 6 on 09/23/2022 by Pro Davis MD at [facility] N/A: Spine Cervical Med[employer] Inc [id number] / / Medtronic Inc Spinal Screw Anterior Cervical Odlp Solid 2.0x7mm [id number] - [id number] Implanted:Qty: 6 on 09/23/2022 by Pro Davis MD at [facility] N/A: Spine Cervical Med[employer]onic Inc [id number] / / Procedures Procedure Name Priority Date/Time Associated Diagnosis Comments PSA SCREEN Routine 07/01/2019 10:[address] ABDOMEN PELVIS W CONTRAST Routine 01/05/2018 12:26 PM CDT from Last 3 Months or Most Recently Relevant to Health Maintenance Results * PSA screen (07/01/2019 10:47 AM CDT) PSA-Total 0.64 <=5.40 ng/mL [facility] Comment: Interpretive Data AGE SEX REFERENCE INTERVAL 0 minutes-150 years Female None 0 minutes-49 years Male None 50-59 years Male 0-3.90 60-69 years Male 0-5.40 70-79 years Male 0-6.20 80-150 years Male 0-6.20 Current interpretive data last revised 2018. Blood specimen (specimen) 07/01/2019 10:47 AM CDT 07/01/2019 11:38 AM CDT us Callum Ponce MD LAB BLOOD ORDERABLES Final Resu lt Performing Organization Address City/State/[facility] Co de Phone Number [facility] [address] [place] [address] * CT Abdomen Pelvis W Contrast (01/05/2018 12:26 PM CDT) Anatomical Region Laterality Modality Body N/A Computed Tomogra phy 01/05/2018 12:2 6 PM CDT Narrative 01/05/2018 12:54 PM CDT FERCHO SCHMIDT M.D. FINAL REPORT ACC# Date Time Exam [id number] Jan 05, 2018 07:26:[address] Chest with contrast [id number] Jan 05, 2018 07:26:[address] Abd & Pelvis with cont EXAMINATION: [...] abdominal or pelvic metastases. Electronically signed by: Fercho Schmidt M.D. Requested By: MAXWELL DAVIS MD, PHD Dictated By: FERCHO SCHMIDT M.D. on Jan 05 2018 7:51A This document has been electronically signed by: FERCHO SCHMIDT M.D. on Jan 05 2018 7:51A [id number] SCHMIDT M.D. FINAL REPORT Attending: MAXWELL DAVIS Requesting: MAXWELL DAVIS Requesting Fax: Attending Fax: Attending ID: [id number] Requesting ID: [id number] Report To 1 ID: [id number] Report To 1 Name: , Report To 1 FAX: NextGen Order #: Procedure Note Miscellaneous, Not In File - 01/05/2018 FERCHO SCHMIDT M.D. FINAL REPORT ACC# Date Time Exam [id number] Jan 05, 2018 07:26:[address] Chest with contrast [id number] Jan 05, 2018 07:26:[address] Abd & Pelvis with cont EXAMINATION: [...] abdominal or pelvic metastases. Electronically signed by: Fercho Schmidt M.D. Requested By: MAXWELL DAVIS MD, PHD Dictated By: FERCHO SCHMIDT M.D. on Jan 05 2018 7:51A This document has been electronically signed by: FERCHO SCHMIDT M.D. on Jan 05 2018 7:51A [id number] SCHMIDT M.D. FINAL REPORT Attending: MAXWELL DAVIS Requesting: MAXWELL DAVIS Requesting Fax: Attending Fax: Attending ID: [id number] Requesting ID: [id number] Report To 1 ID: [id number] Report To 1 Name: , Report To 1 FAX: NextGen Order #: Maxwell Davis MD PhD IMG CT PROCEDURES F inal Result from Last 3 Months or Most Recently Relevant to Health Maintenance Insurance MEDICARE [facility] Address: [id number] [place] [address] [facility] FEDERAL MEDICARE [facility] Member Subscriber Plan / Payer (Ef fective 2005-Present) Name:Kristopher Miles Relation to Subscriber:Self Name:Kristopher Miles Payer ID:[id number] (IC) Group ID:[id number] Type:Spare to Share Address: [place] [id number] MEDICARE [facility] FEDERAL Advance Directives For more information, please contact: [phone] Documents on File Type Date Recorded Patient Department Store Manager Expl anation ADVANCE DIRECTIVE 09/30/2022 10:34 AM [facility] OF STUDIO MANAGER-MEDICAL * Full Code (Latest Code Status on File) Date Activated Date Inactivated Comments 09/23/2022 4:27 PM 09/27/2022 6:27 PM Care Teams Information Systems Auditor Relationship Specialty Start Date End Date Greg Sosa DO [address] [place] [address] PCP - General Internal Medicine 01/29/21 Ayah Mata MD [address] [facility] [address] [place] [address] Radiation Oncology 12/25/18 Aft, Nidia Wallace MD PhD [address] [place] [address] Surgeon Surgical Oncology 12/25/18 Maxwell Davis MD PhD [address] [facility] [address] [place] [address] Medical Oncologist/Caterer'S Aide Medical Oncology 08/23/22 Pro Davis MD [address] [facility] /[place] [address] Surgeon Orthopedic Surgery 09/23/22
--- OUTSIDE RECORDS SUMMARY | 2024-12-24 08:01 | XMS_ITS | Referral Summary ---
Author Organization [facility] Address [address] [place] [address] Care Team Providers Care Technical Customer Support Specialist Name Role Phone Ayah Mtaa MD Unavailable Nidia Herrera MD PhD Unavailable [phone] Greg Sosa DO Primary Care Provider [phone] Miguel Davis MD PhD Unavailable [phone] Pro Davis MD Unavailable [phone] Allergies Active Allergy Reactions Criticality Noted Date Comments Atorvastatin Rash Medium 01/03/2016 Medications losartan (COZAAR) 100 mg tablet Take 1 tablet (100 mg total) by mouth every morning Active Xiidra 5 % dropperette Administer 0.1 each (1 drop total) into both eyes 2 (two) times a day 1 Active fish oil-dha-epa 1,200-144-216 mg capsule Take by mouth Active vit C,R-Ar-awjel-lut ein-zeaxan 250-90-40-1 mg capsule Take by mouth 2 (two) times a day Active Mounjaro 15 mg/0.5 mL pen injector INJECT 15 MG ONCE A WEEK 4 Active Active Problems Problem Noted Date Diagnosed Date Status post cervical spinal fusion 09/23/2022 Cervical spondylosis with myelopathy 08/23/2022 Overview (08/23/2022): Added automatically from request for surgery [id number] Subjective cognitive impairment 07/08/2022 Assessment & Plan (07/08/2022 4:49 PM CDT): Check TSH, B12 given tremor and gait issues. Will obtain 12/2020 brain MRI for my review. Continue with PT for gait training Recommend discussing with manager respiratory re: depth perception. 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 Gender Identity Male 01/14/2022 6:30 PM CDT [...] on file Medical Devices Implanted Type Area Bushler Device Identifier Shelf Expiration Date Model / Serial / Lot Medtronic Inc Centerpiece 14mm Lateral Hole Open Door Color Coded Spine [id number] - [id number] Implanted:Qty: 3 on 09/23/2022 by Pro Davis MD at [facility] N/A: Spine Cervical Med[employer] Inc [id number] / / Medtronic Inc Spinal Screw Anterior Cervical Odlp Solid 2.0x5mm [id number] - [id number] Implanted:Qty: 6 on 09/23/2022 by Pro Davis MD at [facility] N/A: Spine Cervical Med[employer] Inc [id number] / / Medtronic Inc Spinal Screw Anterior Cervical Odlp Solid 2.0x7mm [id number] - [id number] Implanted:Qty: 6 on 09/23/2022 by Pro Davis MD at [facility] N/A: Spine Cervical Med[employer] Inc [id number] / / Procedures Procedure Name Priority Date/Time Associated Diagnosis Comments PSA SCREEN Routine 07/01/2019 10:47 AM CDT Ne[address]iasis CT ABDOMEN PELVIS W CONTRAST Routine 01/05/2018 12:26 PM CDT from Last 3 Months or Most Recently Relevant to Health Maintenance Results * PSA screen (07/01/2019 10:47 AM CDT) PSA-Total 0.64 <=5.40 ng/mL [facility] Comment: Interpretive Data AGE SEX REFERENCE INTERVAL 0 minutes-150 years Female None 0 minutes-49 years Male None 50-59 years Male 0-3.90 60-69 years Male 0-5.40 70-79 years Male 0-6.20 80-150 years Male 0-6.20 Current interpretive data last revised 2018. Blood specimen (specimen) 07/01/2019 10:47 AM CDT 07/01/2019 11:38 AM CDT us Callum Ponce MD LAB BLOOD ORDERABLES Final Resu lt Performing Organization Address City/State/[facility] Co de Phone Number [facility] 1 [place] [address] * CT Abdomen Pelvis W Contrast (01/05/2018 12:26 PM CDT) Anatomical Region Laterality Modality Body N/A Computed Tomogra phy 01/05/2018 12:2 6 PM CDT Narrative 01/05/2018 12:54 PM CDT JOSELO SCHMIDT M.D. FINAL REPORT ACC# Date Time Exam [id number] Jan 05, 2018 07:26:[address] Chest with contrast [id number] Jan 05, 2018 07:26:[address] Abd & Pelvis with cont EXAMINATION: [...] SCHMIDT M.D. on Jan 05 2018 7:51A [id number] SCHMIDT M.D. FINAL REPORT Attending: MIGUEL DAVIS Requesting: MIGUEL DAVIS Requesting Fax: Attending Fax: Attending ID: [id number] Requesting ID: [id number] Report To 1 ID: [id number] Report To 1 Name: , Report To 1 FAX: [email or web address] Order #: Procedure Note Miscellaneous, Not In File - 01/05/2018 JOSELO SCHMIDT M.D. FINAL REPORT ACC# Date Time Exam [id number] Jan 05, 2018 07:26:[address] Chest with contrast [id number] Jan 05, 2018 07:26:[address] Abd & Pelvis with cont EXAMINATION: [...] SCHMIDT M.D. on Jan 05 2018 7:51A [id number] SCHMIDT M.D. FINAL REPORT Attending: MIGUEL DAVIS Requesting: MIGUEL DAVIS Requesting Fax: Attending Fax: Attending ID: [id number] Requesting ID: [id number] Report To 1 ID: [id number] Report To 1 Name: , Report To 1 FAX: NextGen Order #: Miguel Davis MD PhD IMG CT PROCEDURES F inal Result from Last 3 Months or Most Recently Relevant to Health Maintenance Insurance MEDICARE [facility] MEDICARE [facility] Member Subscriber Plan / Payer ( fective 2005-Present) Name:Kristopher Miles Relation to Subscriber:Self Name:Kristopher Miles Payer ID:[id number] (NAIC) Group ID:[id number] Type:[employer] Address: [address] MEDICARE [facility] FEDERAL Advance Directives For more information, please contact: [phone] Documents on File Type Date Recorded Patient Sales Representative Trainee Expl anation ADVANCE DIRECTIVE 09/30/2022 10:34 AM [facility] ER OF PARTNER MANAGEMENT CONSULTANT-MEDICAL * Full Code (Latest Code Status on File) Date Activated Date Inactivated Comments 09/23/2022 4:27 PM 09/27/2022 6:27 PM Care Teams Technical Customer Support Specialist Relationship Specialty Start Date End Date Greg Sosa DO [address] [place] [address] PCP - General Internal Medicine 01/29/21 Ayah Mata MD [address] [facility] [address] [place] [address] Radiation Oncology 12/25/18 Aft, Nidia Wallace MD PhD [address] [place] [address] Surgeon Surgical Oncology 12/25/18 Miguel Davis MD PhD [address] [facility] [address] [place] [address] Medical Oncologist/Hay Rake Operator Medical Oncology 08/23/22 Pro Davis MD [address] [facility] [place] [address] Surgeon Orthopedic Surgery 09/23/22
--- OUTSIDE RECORDS SUMMARY | 2024-12-24 08:01 | XMS_ITS | Encounter Summary ---
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 Gender Identity Male 01/14/2022 6:30 PM CDT [...] on filedocumented in this encounter Care Teams Concrete Finisher Apprentice Relationship Specialty Start Date End Date Greg Sosa DO [address] [place] [address] PCP - General Internal Medicine 01/29/21 Ayah Mata MD [address] [place] [address] Radiation Oncology 12/25/18 Aft, Nidia Wallace MD PhD [address] [place] [address] Surgeon Surgical Oncology 12/25/18 Maxwell Davis MD PhD [address] [place] [address] Medical Oncologist/Senior Finance Manager Medical Oncology 08/23/22 Pro Davis MD [address] [place] [address] Surgeon Orthopedic Surgery 09/23/22 documented as of this encounter
--- OUTSIDE RECORDS SUMMARY | 2024-12-24 08:01 | XMS_ITS | Encounter Summary ---
Author Organization [facility] Address [address] [place] [address] Phone Care Team Providers Care Safety Deposit Supervisor Name Role Phone Maxwell Davis MD PhD Primary Care Provi ramya Ayah Mata MD Unavailable Greg Sosa DO Unavailable [phone] Aft, Nidia Wallace MD PhD Unavailable [phone] Greg Sosa DO Primary Care Provider [phone] Dalton Grimm MD Unavailable Maxwell Davis MD PhD Unavailable [phone] Pro Davis MD Unavailable [phone] Encounter Details Date Type Department Care Team [...] on file 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 Gender Identity Male 01/14/2022 6:30 PM CDT [...] on filedocumented in this encounter Care Teams Safety Deposit Supervisor Relationship Specialty Start Date End Date Maxwell Davis MD PhD [address] [place] [address] PCP - General 01/12/18 01/28/21 Greg Sosa, [address] [place] [address] PCP - General Internal Medicine 01/29/21 Ayah Mata MD [address] [place] [address] Radiation Oncology 12/25/18 Greg Sosa, [address] [place] [address] Referring Physician Internal Medicine 12/25/18 01/28/21 Aft, Nidia Wallace MD PhD [address] [place] [address] Surgeon Surgical Oncology 12/25/18 Dalton Grimm MD [address] [place] [address] Consulting Physician Orthopedic Surgery 07/21/2209/08 Maxwell Davis MD PhD [address] [facility] [address] [place] [address] Medical Oncologist/Treatment Counselor Medical Oncology 08/23/22 Pro Davis MD [address] [facility] [place] [address] [place] [address] Surgeon Orthopedic Surgery 09/23/22 documented as of this encounter
--- OUTSIDE RECORDS SUMMARY | 2024-12-24 08:01 | XMS_ITS | Clinical Summary ---
Author Organization [facility] Address [address] [place] [address] Care Team Providers Care Occupational Health Nurse Name Role Phone MegGreg au Maxwell Primary Care Provider Allergies Active Allergy Reactions Criticality Noted Date Comments Atorvastatin Other (See Comments) 03/21/2021 hives Tamsulosin Other (See Comments) 03/21/2021 rash Medications diclofenac sodium (VOLTAREN) 75 mg Tablet, Delayed Release (E.C.) TAKE 1 TABLET BY MOUTH TWICE DAILY 03/17/2021 Active FreeStyle Adali 14 Day Delta Misc 12/26/2020 Active FreeStyle Adali 14 Day [...] 82 03/21/2021 8:21 AM CDT Temperature 36.8 C (98.2 F) 03/21/2021 8:21 AM CDT Respiratory Rate 18 03/21/2021 8:21 AM CDT [...] Colonography Q 5 years 1995 PNEUMOCOCCAL VACCINE 50+ YEARS (1 of 1 - PCV) 10/14/20 00 ZOSTER VACCINE (1 of 2) 2000 INFLUENZA VACCINE (#1) 2024 RSV VACCINE (60+ or ) (1 - 1-dose 75+ series) 2025 Insurance MEDICARE PART A AND B [facility] FEDERAL MEDICARE FEDERAL [facility] PPO Member Subscriber Plan / Payer (Ef fective 2018-Present) Name:Kristopher Miles Relation to Subscriber:Self Name:Kristopher Miles Payer ID:[id number] (NAIC) Group ID:[id number] Type:[employer] Address: [facility] [id number] [place] [address] Care Teams Occupational Health Nurse Relationship Specialty Start Date End Date Greg Sosa DO [address] [id number] PCP - General Internal Medicine 03/21/21
--- OUTSIDE RECORDS SUMMARY | 2024-12-24 08:01 | XMS_ITS | Encounter Summary ---
Author Organization 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 Gender Identity Male 01/14/2022 6:30 PM CDT [...] on filedocumented in this encounter Care Teams Bag Shaker Relationship Specialty Start Date End Date Greg Sosa DO [address] [place] [address] PCP - General Internal Medicine 01/29/21 Ayah Mata MD [address] [place] [address] Radiation Oncology 12/25/18 Aft, Nidia Wallace MD PhD [address] [place] [address] Surgeon Surgical Oncology 12/25/18 Maxwell Davis MD PhD [address] [place] [address] Medical Oncologist/Regulatory Law Specialist Medical Oncology 08/23/22 Pro Davis MD [address] [place] [address] Surgeon Orthopedic Surgery 09/23/22 documented as of this encounter
[2024-12-24 13:42] LABS: Basophils Absolute Auto 0.1 K/mm3 (0.0-0.1); Basophils Percent Auto 0.9 % (0.2-1.2); Eosinophils Absolute Auto 0.1 K/mm3 (0-0.3); Eosinophils Percent Auto 1.9 % (0-4.4); Hematocrit 45.6 % (42.0-52.0); Hemoglobin 14.8 g/dL (14.0-18.0); Immature Granulocyte Absolute 0.01 K/mm3 (0.00-0.031); Immature Granulocyte Percent A 0.2 % (0-0.5); Lymphocytes Absolute Auto 1.62 K/mm3 (0.9-3.2); Lymphocytes Percent Auto 27.7 % (18.3-44.2); Mean Corpuscular HGB Conc 32.5 g/dl (32-36); Mean Corpuscular Hemoglobin 30.1 pg (26-34); Mean Corpuscular Volume 92.7 fl (80-100); Mean Platelet Volume 10.4 fl (7.4-10.4); Monocytes Absolute Auto 0.7 K/mm3 (0.1-0.6); Monocytes Percent Auto 11.8 % (2.6-8.5); Neutrophils Absolute Auto 3.4 K/mm3 (1.3-6.7); Neutrophils Percent Auto 57.5 % (45.5-73.1); Platelet Count Result 233 k/mm3 (150-375); Red Blood Count 4.92 M/mm3 (4.6-6.20); Red Cell Distribution Width 13.7 % (11.5-14.5); White Blood Count 5.8 K/mm3 (4.5-10.0)
[2024-12-24 13:51] LABS: Alanine Aminotransferase 23 U/L (6-50); Albumin Level 4.1 g/dL (3.5-5.1); Alkaline Phosphatase 75 U/L (38-126); Anion Gap 7 mmol/L (4-12); Aspartate Amino Transferase 51 U/L (17-59); Bilirubin,Total 0.6 mg/dL (0.2-1.3); Blood Urea Nitrogen 14 mg/dL (9-20); Carbon Dioxide 31 mmol/L (22-30); Chloride 99 mmol/L (98-107); Cholesterol 154 mg/dL (0-200); Estimated Glomerular Filt Rate > 60; Glucose 121 mg/dL (65-110); HDL Direct 44 mg/dL; Potassium 4.4 mmol/L (3.4-5.0); Sodium 137 mmol/L (137-145); Triglycerides 157 mg/dL (<150)
[2024-12-24 13:53] LABS: Add Urine Microscopic? YES; Appearance Urine Clear (Clear); Bacteria Urine None Seen /hpf; Bilirubin Urine Negative (Negative); Blood Urine Negative (Negative); Color Urine Yellow (Yellow); Glucose Urine UA Negative (Negative); Ketones Urine Negative (Negative); Leukocyte Esterase Ur Negative LEU/UL (Negative); Nitrate Urine Negative (Negative); Non Pathogenic Casts 0-2; Protein Urine Trace mg/dL (Negative); RBC Urine 0-2 /hpf (0-2); Specific Grav Ur 1.019 (1.001-1.035); Squamous Epithelial Cell Urine None Seen /hpf (Few); Urobilinogen Urine 0.2 mg/dL (<2.0); WBC Urine 0-5 /hpf (0-3)
[2024-12-24 14:02] LABS: LDL Cholesterol Direct 69 mg/dL
[2024-12-24 14:03] LABS: Hemoglobin A1C 6.7 % (<5.7)
[2024-12-24 14:29] LABS: Prostate Specific Antigen 0.9 ng/mL (< OR = 4.0)
== END 2024-12-24 07:54 | disposition home or self-care (01) ==
LOC: ANHGOSHLAB 07:55
PROVIDERS: PCP Nurse Practitioner; Visit Provider Nurse Practitioner
DX: E11.9 Type 2 diabetes mellitus without complications (principal); I10 Essential (primary) hypertension; R42 Dizziness and giddiness; R26.9 Unspecified abnormalities of gait and mobility; Z12.5 Encounter for screening for malignant neoplasm of prostate; E66.09 Other obesity due to excess calories; Z68.34 Body mass index [BMI] 34.0-34.9, adult
CPT/HCPCS: 36415; 80053; 80061; 81001; 82607; 83036; 84153; 84443; 85025; G0103

== ENCOUNTER 2025-02-07 08:55 | Outpatient (CLI) | payer MEDICARE, BC, SELFPAY ==
--- OUTSIDE RECORDS SUMMARY | 2025-02-07 09:44 | XMS_ITS | Encounter Summary ---
Author Organization 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 Gender Identity Male 01/14/2022 6:30 PM CDT [...] on filedocumented in this encounter Care Teams Soldering Inspector Relationship Specialty Start Date End Date Greg Sosa DO [address] [place] [address] PCP - General Internal Medicine 01/29/21 Ayah Mata MD [address] [place] [address] Radiation Oncology 12/25/18 Aft, Nidia Wallace MD PhD [address] [place] [address] Surgeon Surgical Oncology 12/25/18 Maxwell Davis MD PhD [address] [place] [address] Medical Oncologist/Senior Grants Officer Medical Oncology 08/23/22 Pro Davis MD [address] [place] [address] Surgeon Orthopedic Surgery 09/23/22 documented as of this encounter
--- OUTSIDE RECORDS SUMMARY | 2025-02-07 09:44 | XMS_ITS | Encounter Summary ---
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 Gender Identity Male 01/14/2022 6:30 PM CDT [...] on filedocumented in this encounter Care Teams Hand Stamper Relationship Specialty Start Date End Date Greg Sosa DO [address] [place] [address] PCP - General Internal Medicine 01/29/21 Ayah Mata MD [address] [place] [address] Radiation Oncology 12/25/18 Aft, Nidia Wallace MD PhD [address] [place] [address] Surgeon Surgical Oncology 12/25/18 Maxwell Davis MD PhD [address] [place] [address] Medical Oncologist/Earthmoving Labourer Medical Oncology 08/23/22 Pro Davis MD [address] [address] Surgeon Orthopedic Surgery 09/23/22 documented as of this encounter
--- OUTSIDE RECORDS SUMMARY | 2025-02-07 09:45 | XMS_ITS | Referral Summary ---
Author Organization [facility] Address [address] [place] [address] Care Team Providers Care Productivity Engineer Name Role Phone Ayah Mata MD Unavailable Nidia Herrera MD PhD Unavailable [phone] Greg Sosa DO Primary Care Provider [phone] Miguel Davis MD PhD Unavailable [phone] Pro Davis MD Unavailable [phone] Allergies Active Allergy Reactions Criticality Noted Date Comments Atorvastatin Rash Medium 01/03/2016 Medications losartan (COZAAR) 100 mg tablet Take 1 tablet (100 mg total) by mouth every morning Active Xiidra 5 % dropperette Administer 0.1 each (1 drop total) into both eyes 2 (two) times a day 1 Active fish oil-dha-epa 1,200-144-216 mg capsule Take by mouth Active vit C,R-Yp-ijuou-lut ein-zeaxan 250-90-40-1 mg capsule Take by mouth 2 (two) times a day Active Mounjaro 15 mg/0.5 mL pen injector INJECT 15 MG ONCE A WEEK 4 Active Active Problems Problem Noted Date Diagnosed Date Status post cervical spinal fusion 09/23/2022 Cervical spondylosis with myelopathy 08/23/2022 Overview (08/23/2022): Added automatically from request for surgery [id number] Subjective cognitive impairment 07/08/2022 Assessment & Plan (07/08/2022 4:49 PM CDT): Check TSH, B12 given tremor and gait issues. Will obtain 12/2020 brain MRI for my review. Continue with PT for gait training Recommend discussing with textile engraver re: depth perception. 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 Gender Identity Male 01/14/2022 6:30 PM CDT [...] on file Medical Devices Implanted Type Area Finisher Fine Diamond Dies Device Identifier Shelf Expiration Date Model / Serial / Lot Medtronic Inc Centerpiece 14mm Lateral Hole Open Door Color Coded Spine [id number] - [id number] Implanted:Qty: 3 on 09/23/2022 by Pro Davis MD at [facility] N/A: Spine Cervical Medtronic Inc [id number] / / Medtronic Inc Spinal Screw Anterior Cervical Odlp Solid 2.0x5mm [id number] - [id number] Implanted:Qty: 6 on 09/23/2022 by Pro Davis MD at [facility] N/A: Spine Cervical Medtronic Inc [id number] / / Medtronic Inc Spinal Screw Anterior Cervical Odlp Solid 2.0x7mm [id number] - [id number] Implanted:Qty: 6 on 09/23/2022 by Pro Davis MD at [facility] N/A: Spine Cervical Medtronic Inc [id number] / / Procedures Procedure Name Priority Date/Time [...] ORDERABLES Final Resu lt Performing Organization Address City/State/[facility] Co de Phone Number [facility] [address] [place] [address] * CT Abdomen Pelvis W Contrast (01/05/2018 12:26 PM CDT) Anatomical Region Laterality Modality Body N/A Computed Tomogra phy 01/05/2018 12:2 6 PM CDT Narrative 01/05/2018 12:54 PM CDT JOSELO SCHMIDT M.D. FINAL REPORT ACC# Date Time Exam [id number] Jan 05, 2018 07:26:[address] Chest with contrast [id number] Jan 05, 2018 07:26:[address] Abd & Pelvis with cont EXAMINATION: [...] SCHMIDT M.D. on Jan 05 2018 7:51A [id number] SCHMIDT M.D. FINAL REPORT Attending: MIGUEL DAVIS Requesting: MIGUEL DAVIS Requesting Fax: Attending Fax: Attending ID: [id number] Requesting ID: [id number] Report To 1 ID: [id number] Report To 1 Name: , Report To 1 FAX: PreggersGen Order #: Procedure Note Miscellaneous, Not In File - 01/05/2018 JOSELO SCHMIDT M.D. FINAL REPORT ACC# Date Time Exam [id number] Jan 05, 2018 07:26:[address] Chest with contrast [id number] Jan 05, 2018 07:26:[address] Abd & Pelvis with cont EXAMINATION: [...] SCHMIDT M.D. on Jan 05 2018 7:51A [id number] SCHMIDT M.D. FINAL REPORT Attending: MIGUEL DAVIS Requesting: MIGUEL DAVIS Requesting Fax: Attending Fax: Attending ID: [id number] Requesting ID: [id number] Report To 1 ID: [id number] Report To 1 Name: , Report To 1 FAX: NextGen Order #: Miguel Davis MD PhD IMG CT PROCEDURES F inal Result from Last 3 Months or Most Recently Relevant to Health Maintenance Insurance MEDICARE [facility] FEDERAL MEDICARE [facility] Member Subscriber Plan / Payer ( fective 2005-Present) Name:Kristopher Miles Relation to Subscriber:Self Name:Kristopher Miles Payer ID:[id number] (NAIC) Group ID:[id number] Type:[employer] Address: [address] MEDICARE [facility] FEDERAL Member Subscriber Plan / Payer (Ef fective 2018-Present) Name:Kristopher Miles Relation to Subscriber:Self Name:Kristopher Miles Payer ID:[id number] (NAIC) Group ID:[id number] Type:[facility] Address: [address] [place] [id number] Advance Directives For more information, please contact: [phone] Documents on File Type Date Recorded Patient Asphalt Coater Expl anation ADVANCE DIRECTIVE 09/30/2022 10:34 AM [facility] [place] NET MAKER-MEDICAL * Full Code (Latest Code Status on File) Date Activated Date Inactivated Comments 09/23/2022 4:27 PM 09/27/2022 6:27 PM Care Teams Productivity Engineer Relationship Specialty Start Date End Date Greg Sosa DO [address] [place] [address] PCP - General Internal Medicine 01/29/21 Ayah Mata MD [address] [facility] [address] [place] [address] Radiation Oncology 12/25/18 Aft, Nidia Wallace MD PhD [address] [place] [address] Surgeon Surgical Oncology 12/25/18 Miguel Davis MD PhD [address] [facility] [address] [place] [address] Medical Oncologist/Film Sorter Medical Oncology 08/23/22 Pro Davis MD [address] [facility] [place] [address] Surgeon Orthopedic Surgery 09/23/22
--- OUTSIDE RECORDS SUMMARY | 2025-02-07 09:45 | XMS_ITS ---
Author Organization [facility] Address [address] [place] [address] Care Team Providers Care Boot And Saddle Repair Person Name Role Phone Ayah Mata MD Unavailable Aft, Nidia Wallace MD PhD Unavailable [phone] Greg Sosa DO Primary Care Provider [phone]- [phone] Maxwell Davis MD PhD Unavailable [phone] Pro Davis MD Unavailable [phone] Active Problems Problem Noted Date Diagnosed Date Status post cervical spinal fusion 09/23/2022 Cervical spondylosis with myelopathy 08/23/2022 Overview (08/23/2022): Added automatically from request for surgery [id number] Subjective cognitive impairment 07/08/2022 Assessment & Plan (07/08/2022 4:49 PM CDT): Check TSH, B12 given tremor and gait issues. Will obtain 12/2020 brain MRI for my review. Continue with PT for gait training Recommend discussing with archery instructor re: depth perception. Refer back to ortho [...]
--- OUTSIDE RECORDS SUMMARY | 2025-02-07 09:45 | XMS_ITS | Encounter Summary ---
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 Gender Identity Male 01/14/2022 6:30 PM CDT [...] on filedocumented in this encounter Care Teams Glue Maker Relationship Specialty Start Date End Date Greg Sosa DO [address] [place] [address] PCP - General Internal Medicine 01/29/21 Ayah Mata MD [address] [place] [address] Radiation Oncology 12/25/18 Aft, Nidia Wallace MD PhD [address] [place] [address] Surgeon Surgical Oncology 12/25/18 Maxwell Davis MD PhD [address] [place] [address] Medical Oncologist/Color Depositing Machine Tender Medical Oncology 08/23/22 Pro Davis MD [address] [place] [address] Surgeon Orthopedic Surgery 09/23/22 documented as of this encounter
--- OUTSIDE RECORDS SUMMARY | 2025-02-07 09:45 | XMS_ITS | Clinical Summary ---
Author Organization [facility] Address [address] [place] [address] Care Team Providers Care Benefits Director Name Role Phone Ayah Mata MD Unavailable Nidia Herrera MD PhD Unavailable [phone] Greg Sosa DO Primary Care Provider [phone] Maxwell Davis MD PhD Unavailable [phone] Pro Davis MD Unavailable [phone] Allergies Active Allergy Reactions Criticality Noted Date Comments Atorvastatin Rash Medium 01/03/2016 Medications losartan (COZAAR) 100 mg tablet Take 1 tablet (100 mg total) by mouth every morning Active Xiidra 5 % dropperette Administer 0.1 each (1 drop total) into both eyes 2 (two) times a day 1 Active fish oil-dha-epa 1,200-144-216 mg capsule Take by mouth Active vit C,R-Me-dvvyg-lut ein-zeaxan 250-90-40-1 mg capsule Take by mouth 2 (two) times a day Active Mounjaro 15 mg/0.5 mL pen injector INJECT 15 MG ONCE A WEEK 4 Active Active Problems Problem Noted Date Diagnosed Date Status post cervical spinal fusion 09/23/2022 Cervical spondylosis with myelopathy 08/23/2022 Overview (08/23/2022): Added automatically from request for surgery [id number] Subjective cognitive impairment 07/08/2022 Assessment & Plan (07/08/2022 4:49 PM CDT): Check TSH, B12 given tremor and gait issues. Will obtain 12/2020 brain MRI for my review. Continue with PT for gait training Recommend discussing with geotechnical operating engineer re: depth perception. 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 Gender Identity Male 01/14/2022 6:30 PM CDT [...] - 2023-2 5 season) 2024 01/10/2021, 12/13/2020 Fall Risk Assessment 04/30/2025 04/30/2024 Influenza Vaccine (Season Ended) 2025 07/17/2020, 08/10/2019, 08/13/2018, Additional history exists Abdominal Aortic Aneurysm (A AA) Screen Completed 01/05/2018, 01/06/2017, 07/08/2016, Additional history exists Pneumococcal vaccine 65+ Completed 09/22/2018, 12/2016 Zoster Vaccine Completed 01/18/2019, 10/26/2018 Prostate Cancer Screening-PSA Discontinued 07/01/2019 Medical Devices Implanted Type Area Distributor Of Directories Device Identifier Shelf Expiration Date Model / Serial / Lot Medtronic Inc Centerpiece 14mm Lateral Hole Open Door Color Coded Spine [id number] - [id number] Implanted:Qty: 3 on 09/23/2022 by Pro Davis MD at [facility] N/A: Spine Cervical Medtronic Inc [id number] / / Medtronic Inc Spinal Screw Anterior Cervical Odlp Solid 2.0x5mm [id number] - [id number] Implanted:Qty: 6 on 09/23/2022 by Pro Davis MD at [facility] N/A: Spine Cervical Medtronic Inc [id number] / / Medtronic Inc Spinal Screw Anterior Cervical Odlp Solid 2.0x7mm [id number] - [id number] Implanted:Qty: 6 on 09/23/2022 by Pro Davis MD at [facility] N/A: Spine Cervical Medtronic Inc [id number] / / Procedures Procedure Name Priority Date/Time Associated Diagnosis Comments PSA SCREEN Routine 07/01/2019 10:47 AM CDT Nephrolithiasis CT ABDOMEN PELVIS W CONTRAST Routine 01/05/2018 12:26 PM CDT from Last 3 Months or Most Recently Relevant to Health Maintenance Results * PSA screen (07/01/2019 10:47 AM CDT) PSA-Total 0.64 <=5.40 ng/mL [facility] Comment: Interpretive Data AGE SEX REFERENCE INTERVAL 0 minutes-150 years Female None 0 minutes-49 years Male None 50-59 years Male 0-3.90 60-69 years Male 0-5.40 70-79 years Male 0-6.20 80-150 years Male 0-6.20 Current interpretive data last revised 2018. Blood specimen (specimen) 07/01/2019 10:47 AM CDT 07/01/2019 11:38 AM CDT us Callum Ponce MD LAB BLOOD ORDERABLES Final Resu lt Performing Organization Address City/State/[facility] Co de Phone Number [facility] [address] [place] [address] * CT Abdomen Pelvis W Contrast (01/05/2018 12:26 PM CDT) Anatomical Region Laterality Modality Body N/A Computed Tomogra phy 01/05/2018 12:2 6 PM CDT Narrative 01/05/2018 12:54 PM CDT FERCHO SCHMIDT M.D. FINAL REPORT ACC# Date Time Exam [id number] Jan 05, 2018 07:26:[address] Chest with contrast [id number] Jan 05, 2018 07:26:[address] Abd & Pelvis with cont EXAMINATION: [...] SCHMIDT M.D. on Jan 05 2018 7:51A [id number] SCHMIDT M.D. FINAL REPORT Attending: MAXWELL DAVIS Requesting: MAXWELL DAVIS Requesting Fax: Attending Fax: Attending ID: [id number] Requesting ID: [id number] Report To 1 ID: [id number] Report To 1 Name: , Report To 1 FAX: NextGen Order #: Procedure Note Miscellaneous, Not In File - 01/05/2018 FERCHO SCHMIDT M.D. FINAL REPORT ACC# Date Time Exam [id number] Jan 05, 2018 07:26:[address] Chest with contrast [id number] Jan 05, 2018 07:26:[address] Abd & Pelvis with cont EXAMINATION: [...] SCHMIDT M.D. on Jan 05 2018 7:51A [id number] SCHMIDT M.D. FINAL REPORT Attending: MAXWELL DAVIS Requesting: MAXWELL DAVIS Requesting Fax: Attending Fax: Attending ID: [id number] Requesting ID: [id number] Report To 1 ID: [id number] Report To 1 Name: , Report To 1 FAX: NextGen Order #: Maxwell Davis MD PhD IMG CT PROCEDURES F inal Result from Last 3 Months or Most Recently Relevant to Health Maintenance Insurance MEDICARE [facility] FEDERAL MEDICARE [facility] Member Subscriber Plan / Payer (Ef fective 2005-Present) Name:Kristopher Miles Relation to Subscriber:Self Name:Kristopher Miles Payer ID:[id number] (IC) Group ID:[id number] Type:[employer] Address: [place] [id number] [address] MEDICARE [facility] FEDERAL Advance Directives For more information, please contact: [phone] Documents on File Type Date Recorded Patient Medical Case Worker Expl anation ADVANCE DIRECTIVE 09/30/2022 10:34 AM [facility] ER OF CONTENT CREATION MANAGER-MEDICAL * Full Code (Latest Code Status on File) Date Activated Date Inactivated Comments 09/23/2022 4:27 PM 09/27/2022 6:27 PM Care Teams Benefits Director Relationship Specialty Start Date End Date Greg Sosa DO [address] [place] [address] PCP - General Internal Medicine 01/29/21 Ayah Mata MD [address] [place] [address] Radiation Oncology 12/25/18 Aft, Nidia Wallace MD PhD [address] [place] [address] Surgeon Surgical Oncology 12/25/18 Maxwell Davis MD PhD [address] [facility] [address] [place] [address] Medical Oncologist/Ore Dressing Engineer Medical Oncology 08/23/22 Pro Davis MD [address] [facility] [address] [place] [address] Surgeon Orthopedic Surgery 09/23/22
--- OUTSIDE RECORDS SUMMARY | 2025-02-07 09:45 | XMS_ITS | Clinical Summary ---
Author Organization [facility] Address [address] [place] [address] Care Team Providers Care Knitting Machine Operator Name Role Phone MegGreg au Maxwell Primary Care Provider Allergies Active Allergy Reactions Criticality Noted Date Comments Atorvastatin Other (See Comments) 03/21/2021 hives Tamsulosin Other (See Comments) 03/21/2021 rash Medications diclofenac sodium (VOLTAREN) 75 mg Tablet, Delayed Release (E.C.) TAKE 1 TABLET BY MOUTH TWICE DAILY 03/17/2021 Active FreeStyle Adali 14 Day [place] Misc 12/26/2020 Active FreeStyle Adali 14 Day [...] 2025 Insurance MEDICARE PART A AND B [facility] FEDERAL MEDICARE FED[facility]AL [facility] PPO Care Teams Knitting Machine Operator Relationship Specialty Start Date End Date Greg Sosa DO [address] [id number] PCP - General Internal Medicine 03/21/21
--- OUTSIDE RECORDS SUMMARY | 2025-02-07 09:45 | XMS_ITS | Encounter Summary ---
Author Organization [facility] Address [address] [place] [address] Phone Care Team Providers Care Director Clinical Operations Name Role Phone Maxwell Davis MD PhD Primary Care Provi ramya Ayah Mata MD Unavailable Greg Sosa DO Unavailable [phone] AftNidia MD PhD Unavailable [phone] Greg Sosa DO Primary Care Provider [phone]- [phone] Dalton Grimm MD Unavailable Maxwell Davis MD PhD Unavailable [phone] Pro Davis MD Unavailable [phone] Encounter Details Date Type Department Care Team [...] on file 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 Gender Identity Male 01/14/2022 6:30 PM CDT [...] on filedocumented in this encounter Care Teams Director Clinical Operations Relationship Specialty Start Date End Date Maxwell Davis MD PhD [address] [place] [address] PCP - General 01/12/18 01/28/21 Greg Sosa, DO [address] [place] [address] PCP - General Internal Medicine 01/29/21 Ayah Mata MD [address] [place] [address] Radiation Oncology 12/25/18 Greg Sosa, DO [address] [place] [address] Referring Physician Internal Medicine 12/25/18 01/28/21 Aft, Nidia Wallace MD PhD [address] [place] [address] Surgeon Surgical Oncology 12/25/18 Dalton Grimm MD [address] [place] [address] Consulting Physician Orthopedic Surgery 07/21/2209/08 Maxwell Davis MD PhD [address] [facility] [address] [place] [address] Medical Oncologist/Television Repairer Medical Oncology 08/23/22 Pro Davis MD [address] [facility] [address] [place] [address] Surgeon Orthopedic Surgery 09/23/22 documented as of this encounter
[2025-02-07 14:45] LABS: Microalbumin Urine Random 16.7 mg/L (0-16.7)
[2025-02-07 14:48] LABS: Creatinine Urine 128.8 mg/dL
[2025-02-07 15:19] LABS: Hemoglobin A1C 6.9 % (<5.7)
== END 2025-02-07 08:56 | disposition home or self-care (01) ==
PROVIDERS: PCP Nurse Practitioner; Visit Provider Nurse Practitioner
DX: E11.9 Type 2 diabetes mellitus without complications (principal)
CPT/HCPCS: 36415; 82043; 83036

== ENCOUNTER 2025-03-16 10:14 | Outpatient (RCR) | payer MEDICARE, BC, SELFPAY ==
[2025-02-07 13:47] LABS: Hematocrit 44.1 % (42.0-52.0); Hemoglobin 14.5 g/dL (14.0-18.0); Immature Granulocyte Percent A 0.3 % (0-0.5); Lymphocytes Absolute Auto 1.82 K/mm3 (0.9-3.2); Mean Corpuscular HGB Conc 32.9 g/dl (32-36); Mean Corpuscular Hemoglobin 30.0 pg (26-34); Mean Corpuscular Volume 91.3 fl (80-100); Nucleated Red Blood Cells Absolute Auto 0.000 K/mm3 (0.0-0.012); Nucleated Red Blood Cells Perc 0.0 % (0.0-0.2); Platelet Count Result 220 k/mm3 (150-375); Red Blood Count 4.83 M/mm3 (4.6-6.20); White Blood Count 6.7 K/mm3 (4.5-10.0)
[2025-02-07 14:05] LABS: Immunoglobulin A 222 mg/dL (70-400); Immunoglobulin G 1956 mg/dL (700-1600); Immunoglobulin M 67 mg/dL (40-230)
[2025-02-07 14:07] LABS: Alanine Aminotransferase 20 U/L (6-50); Albumin Level 4.0 g/dL (3.5-5.1); Alkaline Phosphatase 74 U/L (38-126); Anion Gap 9 mmol/L (4-12); Aspartate Amino Transferase 65 U/L (17-59); Bilirubin,Total 0.6 mg/dL (0.2-1.3); Blood Urea Nitrogen 18 mg/dL (9-20); Calcium 8.3 mg/dL (8.4-10.2); Carbon Dioxide 25 mmol/L (22-30); Chloride 103 mmol/L (98-107); Estimated Glomerular Filt Rate > 60; Glucose 133 mg/dL (65-110); Potassium 4.1 mmol/L (3.4-5.0); Sodium 137 mmol/L (137-145); Total Protein 8.0 g/dL (6.3-8.2)
[2025-03-18 11:49] LABS: Kappa\\Lambda Light Chains 0.13 (0.26-1.65)
== END 2025-05-08 23:59 | disposition home or self-care (01) ==
LOC: ANHGOSHLAB 10:14
PROVIDERS: PCP Nurse Practitioner
DX: D47.2 Monoclonal gammopathy (principal)
CPT/HCPCS: 36415; 80053; 82043; 82784; 83036; 83883; 85025

== ENCOUNTER 2025-03-29 10:07 | Outpatient (CLI) | payer MEDICARE, BC, SELFPAY ==
--- OUTSIDE RECORDS SUMMARY | 2025-03-29 11:00 | XMS_ITS ---
Author Organization [facility] Address [address] [place] [address] Care Team Providers Care Arborer Name Role Phone Ayah Mata MD Unavailable Aft, Nidia Wallace MD PhD Unavailable [phone] Greg Sosa DO Primary Care Provider [phone] Maxwell Davis MD PhD Unavailable [phone] Pro Davis MD Unavailable [phone] Active Problems Problem Noted Date Diagnosed Date Status post cervical spinal fusion 09/23/2022 Cervical spondylosis with myelopathy 08/23/2022 Overview (08/23/2022): Added automatically from request for surgery [id number] Subjective cognitive impairment 07/08/2022 Assessment & Plan (07/08/2022 4:49 PM CDT): Check TSH, B12 given tremor and gait issues. Will obtain 12/2020 brain MRI for my review. Continue with PT for gait training Recommend discussing with risk management professional re: depth perception. Refer back to ortho [...]
--- OUTSIDE RECORDS SUMMARY | 2025-03-29 11:00 | XMS_ITS | Clinical Summary ---
Author Organization [facility] Address [address] [place] [address] Care Team Providers Care Reel Cutter Name Role Phone Ayah Mata MD Unavailable Nidia Herrera MD PhD Unavailable [phone] Greg Sosa DO Primary Care Provider [phone] Maxwell Davis MD PhD Unavailable [phone] Pro Davis MD Unavailable [phone] Allergies Active Allergy Reactions Criticality Noted Date Comments Atorvastatin Rash Medium 01/03/2016 Medications losartan (COZAAR) 100 mg tablet Take 1 tablet (100 mg total) by mouth every morning Active Xiidra 5 % dropperette Administer 0.1 each (1 drop total) into both eyes 2 (two) times a day 1 Active fish oil-dha-epa 1,200-144-216 mg capsule Take by mouth Active vit C,U-Ll-stvng-lut ein-zeaxan 250-90-40-1 mg capsule Take by mouth 2 (two) times a day Active Mounjaro 15 mg/0.5 mL pen injector INJECT 15 MG ONCE A WEEK 4 Active Active Problems Problem Noted Date Diagnosed Date Status post cervical spinal fusion 09/23/2022 Cervical spondylosis with myelopathy 08/23/2022 Overview (08/23/2022): Added automatically from request for surgery [id number] Subjective cognitive impairment 07/08/2022 Assessment & Plan (07/08/2022 4:49 PM CDT): Check TSH, B12 given tremor and gait issues. Will obtain 12/2020 brain MRI for my review. Continue with PT for gait training Recommend discussing with shredder picker re: depth perception. Refer back to ortho spine to revisit L5-S1 anterolithesis and mod-severe neuroforaminal stenosis. 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/19/2011 Mass of skin 03/13/2011 Encounters Date Type Department Care Team Description 02/10/2025 Orders Only [facility] Hematology [address] [facility] Floor 6 [place] [address] Maisha Casper MGUS (monoclonal gammopathy of unknown significance) (Primary Dx) from Last 3 Months Immunizations Immunization Administration Dates Next Due Influenza, [...] disease Mother Ashley Lugo Bradley Arthritis Mother sAhley Lugo Bradley Heart disease Mother Ashley Lugo Bradley Macular degeneration Mother Ashley Conde e Essential Tremor Sister Anesthesia problems Neg Hx Relation Name Status Comments Father Kristopher SANONN Unterwagner Mother Ashley Huerta Sister Social History [...] on file 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 Gender Identity Male 01/14/2022 6:30 PM CDT [...] 10:45 AM CDT Height 180.3 cm (5' 11) 06/16/2024 10: 23 AM CDT Body Mass [...] history exists Pneumococcal vaccine 65+ Completed 09/22/2018, 1112/2016 Zoster Vaccine Completed 01/18/2019, 10/26/2018 Prostate Cancer Screening-PSA Discontinued 07/01/2019 Medical Devices Implanted Type Area Line Out Man Device Identifier Shelf Expiration Date Model / Serial / Lot Medtronic Inc Centerpiece 14mm Lateral Hole Open Door Color Coded Spine [id number] - [id number] Implanted:Qty: 3 on 09/23/2022 by Pro Davis MD at [facility] N/A: Spine Cervical Med[employer]onic Inc [id number] / / Med[employer]onic Inc Spinal Screw Anterior Cervical Odlp Solid 2.0x5mm [id number] - [id number] Implanted:Qty: 6 on 09/23/2022 by Pro Davis MD at [facility] N/A: Spine Cervical Med[employer]onic Inc [id number] / / Med[employer]onic Inc Spinal Screw Anterior Cervical Odlp Solid 2.0x7mm [id number] - [id number] Implanted:Qty: 6 on 09/23/2022 by Pro Davis MD at [facility] N/A: Spine Cervical Med[employer] Inc [id number] / / Procedures Procedure Name Priority Date/Time [...] MD LAB BLOOD ORDERABLES Final Resu lt [facility] [address] [place] [address] * CT Abdomen Pelvis W Contrast (01/05/2018 12:26 PM CDT) Anatomical Region Laterality Modality Body N/A Computed Tomogra phy 01/05/2018 12:2 6 PM CDT Narrative 01/05/2018 12:54 PM CDT FERCHO SCHMIDT M.D. FINAL REPORT ACC# Date Time Exam [id number] Jan 05, 2018 07:26:[address] Chest with contrast [id number] Jan 05, 2018 07:26:[address] Abd & Pelvis with cont EXAMINATION: [...] SCHMIDT M.D. on Jan 05 2018 7:51A [id number] SCHMIDT M.D. FINAL REPORT Attending: MAXWELL DAVIS Requesting: MAXWELL DAVIS Requesting Fax: Attending Fax: Attending ID: [id number] Requesting ID: [id number] Report To 1 ID: [id number] Report To 1 Name: , Report To 1 FAX: NextGen Order #: Procedure Note Miscellaneous, Not In File - 01/05/2018 FERCHO SCHMIDT M.D. FINAL REPORT ACC# Date Time Exam [id number] Jan 05, 2018 07:26:[address] Chest with contrast [id number] Jan 05, 2018 07:26:[address] Abd & Pelvis with cont EXAMINATION: [...] SCHMIDT M.D. on Jan 05 2018 7:51A [id number] SCHMIDT M.D. FINAL REPORT Attending: MAXWELL DAVIS Requesting: MAXWELL DAVIS Requesting Fax: Attending Fax: Attending ID: [id number] Requesting ID: [id number] Report To 1 ID: [id number] Report To 1 Name: , Report To 1 FAX: NextGen Order #: Maxwell Davis MD PhD IMG CT PROCEDURES F inal Result from Last 3 Months or Most Recently Relevant to Health Maintenance Insurance MEDICARE [facility] FEDERAL MEDICARE ANTH ACCESS TRADITIONAL MEDICARE [facility] Advance Directives For more information, please contact: [phone] Documents on File Type Date Recorded Patient Patient Admitting Clerk Expl anation ADVANCE DIRECTIVE 09/30/2022 10:34 AM [facility] ER OF REGISTERED CLIENT ASSOCIATE-MEDICAL * Full Code (Latest Code Status on File) Date Activated Date Inactivated Comments 09/23/2022 4:27 PM 09/27/2022 6:27 PM Care Teams Reel Cutter Relationship Specialty Start Date End Date Greg Sosa DO [address] [place] [address] PCP - General Internal Medicine 01/29/21 Ayah Mata MD [address] [facility] [address] [place] [address] Radiation Oncology 12/25/18 Aft, Nidia Wallace MD PhD [address] [place] [address] Surgeon Surgical Oncology 12/25/18 Maxwell Davis MD PhD [address] [facility] [address] [place] [address] Medical Oncologist/Materials Scientist Medical Oncology 08/23/22 Pro Davis MD [address] [facility] [address] [place] [address] Surgeon Orthopedic Surgery 09/23/22
--- OUTSIDE RECORDS SUMMARY | 2025-03-29 11:00 | XMS_ITS | Encounter Summary ---
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 Gender Identity Male 01/14/2022 6:30 PM CDT [...] on filedocumented in this encounter Care Teams Vp Lab Relationship Specialty Start Date End Date Greg Sosa DO [address] [place] [address] PCP - General Internal Medicine 01/29/21 Ayah Mata MD [address] [facility] [address] [place] [address] Radiation Oncology 12/25/18 Aft, Nidia Wallace MD PhD [address] [place] [address] Surgeon Surgical Oncology 12/25/18 Maxwell Davis MD PhD [address] [facility] [address] [place] [address] Medical Oncologist/Gum Rolling Machine Tender Medical Oncology 08/23/22 Pro Davis MD [address] [facility] [address] [place] [address] Surgeon Orthopedic Surgery 09/23/22 documented as of this encounter
--- OUTSIDE RECORDS SUMMARY | 2025-03-29 11:00 | XMS_ITS | Encounter Summary ---
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 Gender Identity Male 01/14/2022 6:30 PM [...] on filedocumented in this encounter Care Teams Sand Digger Relationship Specialty Start Date End Date Greg Sosa DO [address] [place] [address] PCP - General Internal Medicine 01/29/21 Ayah Mata MD [address] [facility] [address] [place] [address] Radiation Oncology 12/25/18 Aft, Nidia Wallace MD PhD [address] [place] [address] Surgeon Surgical Oncology 12/25/18 Maxwell Davis MD PhD [address] [facility] [address] [place] [address] Medical Oncologist/Sales Performance Manager Medical Oncology 08/23/22 Pro Davis MD [address] [facility] [address] [place] [address] Surgeon Orthopedic Surgery 09/23/22 documented as of this encounter
--- OUTSIDE RECORDS SUMMARY | 2025-03-29 11:00 | XMS_ITS | Clinical Summary ---
Author Organization [facility] Address [address] [place] [address] Care Team Providers Care Residential Collections Name Role Phone MegGreg au Maxwell Primary Care Provider Allergies Active Allergy Reactions Criticality Noted Date Comments Atorvastatin Other (See Comments) 03/21/2021 hives Tamsulosin Other (See Comments) 03/21/2021 rash Medications diclofenac sodium (VOLTAREN) 75 mg Tablet, Delayed Release (E.C.) TAKE 1 TABLET BY MOUTH TWICE DAILY 03/17/2021 Active FreeStyle Adali 14 Day [place] Misc 12/26/2020 Active FreeStyle Adali 14 Day [...] 8:21 AM CDT Height 177.8 cm (5' 10) 03/21/2021 8:21 AM CDT Body Mass Index [...] 2025 Insurance MEDICARE PART A AND B [facility] FEDERAL MEDICARE FEDERAL [place] PPO Care Teams Residential Collections Relationship Specialty Start Date End Date Greg Sosa DO [address] [id number] PCP - General Internal Medicine 03/21/21
--- OUTSIDE RECORDS SUMMARY | 2025-03-29 11:00 | XMS_ITS | Encounter Summary ---
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 Gender Identity Male 01/14/2022 6:30 PM [...] on filedocumented in this encounter Care Teams Fountain Clerk Relationship Specialty Start Date End Date Greg Sosa DO [address] [place] [address] PCP - General Internal Medicine 01/29/21 Ayah Mata MD [address] [facility] [address] [place] [address] Radiation Oncology 12/25/18 Aft, Nidia Wallace MD PhD [address] [place] [address] Surgeon Surgical Oncology 12/25/18 Maxwell Davis MD PhD [address] [facility] [address] [place] [address] Medical Oncologist/Treatment Manager Medical Oncology 08/23/22 Pro Davis MD [address] [facility] [address] [place] [address] Surgeon Orthopedic Surgery 09/23/22 documented as of this encounter
--- OUTSIDE RECORDS SUMMARY | 2025-03-29 11:00 | XMS_ITS | Referral Summary ---
Author Organization [facility] Address [address] [place] [address] Care Team Providers Care Proposal Manager Name Role Phone Ayah Mata MD Unavailable Aft, Nidia Wallace MD PhD Unavailable [phone] Greg Sosa DO Primary Care Provider [phone] Maxwell Davis MD PhD Unavailable + [phone] Pro Davis MD Unavailable [phone] Encounters Date Type Department Care Team Description 02/10/2025 Orders Only [facility] Hematology [address] [facility] [address] [place] [address] Maisha Casper MGUS (monoclonal gammopathy of unknown significance) (Primary Dx) from Last 3 Months Allergies Active Allergy Reactions Criticality Noted Date Comments Atorvastatin Rash Medium 01/03/2016 Medications losartan (COZAAR) 100 mg tablet Take 1 tablet (100 mg total) by mouth every morning Active Xiidra 5 % dropperette Administer 0.1 each (1 drop total) into both eyes 2 (two) times a day 1 Active fish oil-dha-epa 1,200-144-216 mg capsule Take by mouth Active vit C,R-Qp-ppqoa-lut ein-zeaxan 250-90-40-1 mg capsule Take by mouth 2 (two) times a day Active Mounjaro 15 mg/0.5 mL pen injector INJECT 15 MG ONCE A WEEK 4 Active Active Problems Problem Noted Date Diagnosed Date Status post cervical spinal fusion 09/23/2022 Cervical spondylosis with myelopathy 08/23/2022 Overview (08/23/2022): Added automatically from request for surgery [id number] Subjective cognitive impairment 07/08/2022 Assessment & Plan (07/08/2022 4:49 PM CDT): Check TSH, B12 given tremor and gait issues. Will obtain 12/2020 brain MRI for my review. Continue with PT for gait training Recommend discussing with extended insurance clerk re: depth perception. 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 Gender Identity Male 01/14/2022 6:30 PM CDT [...] on file Medical Devices Implanted Type Area Family Coach Device Identifier Shelf Expiration Date Model / Serial / Lot Medtronic Inc Centerpiece 14mm Lateral Hole Open Door Color Coded Spine [id number] - [id number] Implanted:Qty: 3 on 09/23/2022 by Pro Davis MD at [facility] N/A: Spine Cervical [employer] Inc [id number] / / Med[employer] Inc Spinal Screw Anterior Cervical Odlp Solid 2.0x5mm [id number] - [id number] Implanted:Qty: 6 on 09/23/2022 by Pro Davis MD at [facility] N/A: Spine Cervical Med[employer] Inc [id number] / / Med[employer] Inc Spinal Screw Anterior Cervical Odlp Solid 2.0x7mm [id number] - [id number] Implanted:Qty: 6 on 09/23/2022 by Pro Davis MD at [facility] N/A: Spine Cervical [employer] Inc [id number] / / Procedures Procedure Name Priority Date/Time [...] MD LAB BLOOD ORDERABLES Final Resu lt [facility] [address] [place] [address] * CT Abdomen Pelvis W Contrast (01/05/2018 12:26 PM CDT) Anatomical Region Laterality Modality Body N/A Computed Tomogra phy 01/05/2018 12:2 6 PM CDT Narrative 01/05/2018 12:54 PM CDT FERCHO SCHMIDT M.D. FINAL REPORT ACC# Date Time Exam [id number] Jan 05, 2018 07:26:[address] Chest with contrast [id number] Jan 05, 2018 07:26:[address] Abd & Pelvis with cont EXAMINATION: [...] SCHMIDT M.D. on Jan 05 2018 7:51A [id number] SCHMIDT M.D. FINAL REPORT Attending: MAXWELL DAVIS Requesting: MAXWELL DAVIS Requesting Fax: Attending Fax: Attending ID: [id number] Requesting ID: [id number] Report To 1 ID: [id number] Report To 1 Name: , Report To 1 FAX: NextGen Order #: Procedure Note Miscellaneous, Not In File - 01/05/2018 FERCHO SCHMIDT M.D. FINAL REPORT ACC# Date Time Exam [id number] Jan 05, 2018 07:26:[address] Chest with contrast [id number] Jan 05, 2018 07:26:[address] Abd & Pelvis with cont EXAMINATION: [...] SCHMIDT M.D. on Jan 05 2018 7:51A [id number] SCHMIDT M.D. FINAL REPORT Attending: MAXWELL DAVIS Requesting: MAXWELL DAVIS Requesting Fax: Attending Fax: Attending ID: [id number] Requesting ID: [id number] Report To 1 ID: [id number] Report To 1 Name: , Report To 1 FAX: NextGen Order #: Maxwell Davis MD PhD IMG CT PROCEDURES F inal Result from Last 3 Months or Most Recently Relevant to Health Maintenance Insurance MEDICARE [facility] MEDICARE [facility] Member Subscriber Plan / Payer ( fective 2005-Present) Name:Kristopher Miles Relation to Subscriber:Self Name:Kristopher Miles Payer ID:[id number] (NAIC) Group ID:[id number] Type:[employer] Address: [address] MEDICARE [facility] Advance Directives For more information, please contact: [phone] Documents on File Type Date Recorded Patient Document Scanner Expl anation ADVANCE DIRECTIVE 09/30/2022 10:34 AM [facility] ER OF FRAME STRAIGHTENER-MEDICAL * Full Code (Latest Code Status on File) Date Activated Date Inactivated Comments 09/23/2022 4:27 PM 09/27/2022 6:27 PM Care Teams Proposal Manager Relationship Specialty Start Date End Date Greg Sosa DO [address] [place] [address] PCP - General Internal Medicine 01/29/21 Ayah Mata MD [address] [facility] [address] [place], [place] [address] Radiation Oncology 12/25/18 Aft, Nidia Wallace MD PhD [address] [place] [address] Surgeon Surgical Oncology 12/25/18 Maxwell Davis MD PhD [address] [facility] [address] [place] [address] Medical Oncologist/Film Process Operator Medical Oncology 08/23/22 Pro Davis MD [address] [facility] [address] [place] [address] Surgeon Orthopedic Surgery 09/23/22
--- OUTSIDE RECORDS SUMMARY | 2025-03-29 11:00 | XMS_ITS | Encounter Summary ---
Author Organization 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 Gender Identity Male 01/14/2022 6:30 PM [...] on filedocumented in this encounter Care Teams Organic Chemistry Professor Relationship Specialty Start Date End Date Maxwell Davis MD PhD [address] [place] [address] PCP - General 01/12/18 01/28/21 Greg Sosa, DO [address] [place] [address] PCP - General Internal Medicine 01/29/21 Ayah Mata MD [address] [place] [address] Radiation Oncology 12/25/18 Greg Sosa, DO [address] [place] [address] Referring Physician Internal Medicine 12/25/18 01/28/21 Aft, Nidia Wallace MD PhD [address] [place] [address] Surgeon Surgical Oncology 12/25/18 Dalton Grimm MD [address] [place] [address] Consulting Physician Orthopedic Surgery 07/21/2209/08 Maxwell Davis MD PhD [address] [facility] [address] [place] [address] Medical Oncologist/Supervisor Model Making Medical Oncology 08/23/22 Pro Davis MD [address] [place] [address] Surgeon Orthopedic Surgery 09/23/22 documented as of this encounter
[2025-03-30 08:44] LABS: Protein, Total 7.6 g/dL (6.1-8.1)
[2025-03-31 08:18] LABS: Abnormal Protein Band 1 1.5 g/dL (NONE DETECTED); Alpha 1 Globulin 0.3 g/dL (0.2-0.3); Alpha 2 Globulin 0.6 g/dL (0.5-0.9); Beta 1 Globulin 0.5 g/dL (0.4-0.6); Gamma Globulin 1.9 g/dL (0.8-1.7)
== END 2025-03-29 10:08 | disposition home or self-care (01) ==
LOC: ANHGOSHLAB 10:09
PROVIDERS: PCP Nurse Practitioner
DX: D47.2 Monoclonal gammopathy (principal)
CPT/HCPCS: 36415; 84155; 84165

== ENCOUNTER 2025-07-14 07:53 | Outpatient (CLI) | payer MEDICARE, BC, SELFPAY ==
--- OUTSIDE RECORDS SUMMARY | 2025-07-14 07:58 | XMS_ITS | Encounter Summary ---
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 Gender Identity Male 01/14/2022 6:30 PM CDT [...] on filedocumented in this encounter Care Teams Chemical Production Machine Operator Relationship Specialty Start Date End Date Greg Sosa DO [address] [place] [address] PCP - General Internal Medicine 01/29/21 Ayah Mata MD [address] [facility] [address] [place] [address] Radiation Oncology 12/25/18 Aft, Nidia Wallace MD PhD [address] [place] [address] Surgeon Surgical Oncology 12/25/18 Maxwell Davis MD PhD [address] [facility] [address] [place] [address] Medical Oncologist/Finger Lift Operator Medical Oncology 08/23/22 Pro Davis MD [address] [facility] [address] [place] [address] Surgeon Orthopedic Surgery 09/23/22 documented as of this encounter
--- OUTSIDE RECORDS SUMMARY | 2025-07-14 07:59 | XMS_ITS | Encounter Summary ---
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 Gender Identity Male 01/14/2022 6:30 PM CDT [...] on filedocumented in this encounter Care Teams Gallery Or Museum Technician Relationship Specialty Start Date End Date Greg Sosa DO [address] [place] [address] PCP - General Internal Medicine 01/29/21 Ayah Mata MD [address] [facility] [address] [place] [address] Radiation Oncology 12/25/18 Aft, Nidia Wallace MD PhD [address] [place] [address] Surgeon Surgical Oncology 12/25/18 Maxwell Davis MD PhD [address] [facility] [address] [place] [address] Medical Oncologist/Precision Lens Centerer And Edger Medical Oncology 08/23/22 Pro Davis MD [address] [facility] [address] [place] [address] Surgeon Orthopedic Surgery 09/23/22 documented as of this encounter
--- OUTSIDE RECORDS SUMMARY | 2025-07-14 07:59 | XMS_ITS | Encounter Summary ---
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 Gender Identity Male 01/14/2022 6:30 PM CDT [...] on filedocumented in this encounter Care Teams Municipal Maintenance Worker Relationship Specialty Start Date End Date Greg Sosa DO [address] [place] [address] PCP - General Internal Medicine 01/29/21 Ayah Mata MD [address] [employer] [facility] [address] [place] [address] Radiation Oncology 12/25/18 Aft, Nidia Wallace MD PhD [address] [place] [address] Surgeon Surgical Oncology 12/25/18 Maxwell Davis MD PhD [address] [facility] [address] [place] [address] Medical Oncologist/Woodwind Instruments Inspector Medical Oncology 08/23/22 Pro Davis MD [address] [facility] [address] [place] [address] Surgeon Orthopedic Surgery 09/23/22 documented as of this encounter
--- OUTSIDE RECORDS SUMMARY | 2025-07-14 07:59 | XMS_ITS | Clinical Summary ---
Author Organization [facility] Administrative Offices Address [address] [place] [address] Care Team Providers Care Weather Algorithm Scientist Name Role Phone MegGreg au Maxwell Primary Care Provider Allergies Active Allergy Reactions Criticality Noted Date Comments Atorvastatin Other (See Comments) 03/21/2021 hives Tamsulosin Other (See Comments) 03/21/2021 rash Medications diclofenac sodium (VOLTAREN) 75 mg Tablet, Delayed Release (E.C.) TAKE 1 TABLET BY MOUTH TWICE DAILY 03/17/2021 Active FreeStyle Adali 14 Day Baird Misc 12/26/2020 Active FreeStyle Adali 14 Day [...] (1 of 2) 2000 INFLUENZA VACCINE (#1) 2025 RSV VACCINE (60+ or ) (1 - 1-dose 75+ series) 2025 Insurance MEDICARE PART A AND B [facility] MED[facility] PPO Care Teams Weather Algorithm Scientist Relationship Specialty Start Date End Date Greg Sosa DO [address] [phone] PCP - General Internal Medicine 03/21/21
--- OUTSIDE RECORDS SUMMARY | 2025-07-14 07:59 | XMS_ITS | Encounter Summary ---
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 Gender Identity Male 01/14/2022 6:30 PM CDT [...] on filedocumented in this encounter Care Teams Cutter First Relationship Specialty Start Date End Date Maxwell Davis MD PhD [address] [place] [address] PCP - General 01/12/18 01/28/21 Greg Sosa, DO [address] [place] [address] PCP - General Internal Medicine 01/29/21 Ayah Mata MD [address] [place] [address] Radiation Oncology 12/25/18 Greg Sosa, DO [address] [place] [address] Referring Physician Internal Medicine 12/25/18 01/28/21 Aft, Nidia Wallace MD PhD [address] [place] [address] Surgeon Surgical Oncology 12/25/18 Dalton Grimm MD [address] [place] [address] Consulting Physician Orthopedic Surgery 07/21/2209/08 Maxwell Davis MD PhD [address] [facility] [address] [place] [address] Medical Oncologist/Billiard Table Assembler Medical Oncology 08/23/22 Pro Davis MD [address] [place] [address] Surgeon Orthopedic Surgery 09/23/22 documented as of this encounter
--- OUTSIDE RECORDS SUMMARY | 2025-07-14 07:59 | XMS_ITS | Clinical Summary ---
Author Organization [facility] Address [address] [place] [address] Care Team Providers Care Care Clinician Name Role Phone Ayah Mata MD Unavailable Aft, Nidia Wallace MD PhD Unavailable [phone] Greg Sosa DO Primary Care Provider [phone] Miguel Davis MD PhD Unavailable [phone] Pro Davis MD Unavailable [phone] Allergies Active Allergy Reactions Criticality Noted Date Comments Atorvastatin Rash Medium 01/03/2016 Medications losartan (COZAAR) 100 mg tablet Take 1 tablet (100 mg total) by mouth every morning Active fish oil-dha-epa 1,200144-216 mg capsule Take by mouth Activ e vit C,T-Hx-urayh-enriqueta tein-zeaxan 250-90-40-1 mg capsule Take by mouth 2 (two) times a day Active Mounjaro 15 mg/0.5 mL pen injector INJECT 15 MG ONCE A WEEK 06/09/20 24 Active ezetimibe (ZETIA) 10 mg tablet Take 1 tablet (10 mg total) by mouth daily 05/30/20 25 Active Xiidra 5 % dropperette Administer 0.1 each (1 drop total) into both eyes 2 (two) times a day 07/10/20 21 025 Discontinued Active Problems Problem Noted Date Diagnosed Date Status post cervical spinal fusion 09/23/2022 Cervical spondylosis with myelopathy 08/23/2022 Overview (08/23/2022): Added automatically from request for surgery [id number] Subjective cognitive impairment 07/08/2022 Assessment & Plan (07/08/2022 4:49 PM CDT): Check TSH, B12 given tremor and gait issues. Will obtain 12/2020 brain MRI for my review. Continue with PT for gait training Recommend discussing with strategic accounts manager re: depth perception. Refer back to ortho spine to revisit L5-S1 anterolithesis and mod-severe neuroforaminal stenosis. 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/19/2011 Mass of skin 03/13/2011 Encounters Date Type Department Care Team Description 07/04/2025 Results Follow-Up [facility] Medicine Hematology [address] [place] [address] [address] [place] [address] Rhonda Godoy RN Protein electrophoresis with reflex, serum with interpretation, Immunoglobulin free light chains, IgM, Additional followed-up results: 6 06/30/2025 10:45 AM CDT Office Visit [facility] Medicine Hematology [address] [place] [address] 6 [place] [phone] Gabby Bose MD MGUS (monoclonal gammopathy of unknown significance) (Primary Dx) 06/30/2025 9:45 AM CDT Lab [facility] - Lab Collection [address] [place] [address] Floor 6 [place] [address] MGUS (monoclonal gammopathy of unknown significance) from Last 3 Months Immunizations Immunization Administration [...] Medical History Date Comments Hypertension Diabetes mellitus Leiomyosarcoma (HCC) Hypogonadism in male BPH (benign prostatic hyperplasia) Macular degeneration Arthritis Kidney stone Osteoporosis Peptic ulceration Plantar fasciitis Obesity MGUS (monoclonal gammopathy of unknown significance) Dizziness GERD (gastroesophageal reflux disease) > 1 year Cataract Surgery in spring / summer 2020 Type 2 diabetes mellitus Family History Medical History Relation Name Comments Diabetes Father Kristopher NMN [place] Hearing loss Father Kristopher SANONN [place] Hypertension Father Kristopher NMN [place] Stroke Father Kristopher NMN [place] Alzheimer's disease Mother Ashley Foster [place] Arthritis Mother [facility] [place] Heart disease Mother Ashley Foster [place] Macular degeneration Mother Ashley Foster Crabtre e Essential Tremor Sister Anesthesia problems Neg Hx Relation Name Status Comments Father Kristopher NMN [place] Mother Ashley Foster [place] Sister Social History Tobacco Use Types Packs/Day [...] on file 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 Gender Identity Male 01/14/2022 6:30 PM CDT Sexual Orientation Straight 06/15/2021 2: 36 PM CDT Occupation Industry Job Start Date Job End Date Retired Not on file Not on file Not on file Obstetrics History Last Filed Vital Signs Vital Sign Reading Time Taken Comments Blood Pressure 131/80 06/30/2025 9:44 AM CDT Pulse 82 06/30/2025 9:44 AM CDT Temperature 36.8 C (98.3 F) 06/30/2025 9:44 AM CDT Respiratory Rate 16 06/30/2025 9:44 AM CDT Oxygen Saturation 98% 06/30/2025 9:44 AM CDT Inhaled Oxygen Concentration - - Weight 117.5 kg (259 lb) 06/30/2025 9:44 AM CDT Height 176.1 cm (5' 9.33) 06/30/2025 9:44 AM CD T Body Mass Index 37.88 06/30/2025 9:44 AM CDT Plan of Treatment Health Maintenance Due Date Last Done Comments Colon Cancer Screening-Colonoscopy 1950 Depression Screening 1950 Hepatitis C Screening 1950 DTaP/Tdap/Td Vaccine (1 - Tdap) 1961 Hepatitis B Screening 1968 Well Visit 65+ 2015 Fall Risk Assessment 04/30/2025 04/30/2024 Covid-19 Vaccine (3 - 2024-2 6 season) 2025 01/10/2021, 12/13/2020 Influenza Vaccine (#1) 2025 , 07/19/2022, 07/17/2020, Additional history exists Abdominal Aortic Aneurysm (A AA) Screen Completed 01/05/2018, 01/06/2017, 07/08/2016, Additional history exists Pneumococcal vaccine 65+ Completed 09/22/2018, 11/0 12/2016 Zoster Vaccine Completed 01/18/2019, 04/2019, 08/22/2017 Prostate Cancer Screening-PSA Discontinued 07/01/2019 Medical Devices Implanted Type Area Broom Worker Device Identifier Shelf Expiration Date Model / Serial / Lot [employer] Centerpiece 14mm Lateral Hole Open Door Color Coded Spine [id number] - [id number] Implanted:Qty: 3 on 09/23/2022 by Pro Davis MD at [facility] N/A: Spine Cervical [employer] [id number] / / [employer] Spinal Screw Anterior Cervical Odlp Solid 2.0x5mm [id number] - [id number] Implanted:Qty: 6 on 09/23/2022 by Pro Davis MD at [facility] N/A: Spine Cervical [employer] [id number] / / [employer] Spinal Screw Anterior Cervical Odlp Solid 2.0x7mm [id number] - [id number] Implanted:Qty: 6 on 09/23/2022 by Pro Davis MD at [facility] N/A: Spine Cervical [employer] Inc [id number] / / Procedures Procedure Name Priority Date/Time Associated Diagnosis Comments DIFFERENTIAL AUTO Routine 06/30/2025 9:5 0 AM CDT MGUS (monoclonal gammopathy of unknown significance) CBC WITH AUTO DIFFERENTIAL Routine 06/30/2025 9:50 AM CDT MGUS (monoclonal gammopathy of unknown significance) EGFR Routine 06/30/2025 9:33 AM CDT MGUS (monoclonal gammopathy of unknown significance) COMPREHENSIVE METABOLIC PANEL Routine 06/30/2025 9:33 AM CDT MGUS (monoclonal gammopathy of unknown significance) IGA Routine 06/30/2025 9:33 AM CDT MGUS (monoclonal gammopathy of unknown significance) IGG Routine 06/30/2025 9:33 AM CDT MGUS (monoclonal gammopathy of unknown significance) IGM Routine 06/30/2025 9:33 AM CDT MGUS (monoclonal gammopathy of unknown significance) IMMUNOGLOBULIN FREE LIGHT CHAINS Routine 06/30/2025 9:33 AM CDT MGUS (monoclonal gammopathy of unknown significance) PROTEIN ELECTROPHORESIS, WITH REFLEX, SERUM Routine 06/30/2025 9:33 AM CDT MGUS (monoclonal gammopathy of unknown significance) PSA SCREEN Routine 07/01/2019 10:47 [address] CDT [address] ABDOMEN PELVIS W CONTRAST Routine 01/05/2018 12:26 PM CDT from Last 3 Months or Most Recently Relevant to Health Maintenance Results * Differential, auto (06/30/2025 9:50 AM CDT) Neutrophil abs 4.07 1.50 - 6.50 K/cumm Comment:Testing performed by : [facility][Note 3] Heme Lab, [address] [place], [place] [phone] Lymphocyte abs 1.58 0.80 - 3.30 K/cumm CERNER BJ Comment:Testing performed by : [facility][Note 3] Heme Lab, [address] [place] [phone] Monocyte abs 0.66 0.20 - 0.80 K/cumm CERNER BJ Comment:Testing performed by : [facility][Note 3] Heme Lab, [address] [place], [place] [phone] Eosinophil abs 0.11 0.00 - 0.50 K/cumm CERNER BJ Comment:Testing performed by : [facility][Note 3] Heme Lab, [address] [place] [phone] Basophil abs 0.08 0.00 - 0.10 K/cumm CERNER [facility] Comment:Testing performed by : [facility][Note 3] Heme Lab, [address] [place] [phone] Neutrophil pct 62.6 % CERNER [facility] Comment: Interpretive Data Percent cell count reference ranges are not reported, since discordance with absolute values may lead to misinterpretation of CBC data. Current Interpretive Data was last revised on 2018. Testing performed by: [facility][Note 3] Heme Lab, [address] [place] [phone] Lymphocyte pct 24.4 % CERFELISHA GREGORIO Comment: Interpretive Data Percent cell count reference ranges are not reported, since discordance with absolute values may lead to misinterpretation of CBC data. Current Interpretive Data was last revised on 2018. Testing performed by: [facility], [address] [place] [phone] Monocyte pct 10.2 % CERFELISHA GREGORIO Comment: Interpretive Data Percent cell count reference ranges are not reported, since discordance with absolute values may lead to misinterpretation of CBC data. Current Interpretive Data was last revised on 2018. Testing performed by: [facility], [address] [place] [phone] Eosinophil pct 1.7 % DINESH GREGORIO Comment: Interpretive Data Percent cell count reference ranges are not reported, since discordance with absolute values may lead to misinterpretation of CBC data. Current Interpretive Data was last revised on 2018. Testing performed by: [facility][Note 3] Heme Lab, [address] [place] [phone] Basophil pct 1.2 % DINESH GREGORIO Comment: Interpretive Data Percent cell count reference ranges are not reported, since discordance with absolute values may lead to misinterpretation of CBC data. Current Interpretive Data was last revised on 2018. Testing performed by: [facility], [address] [place] [phone] Blood 06/30/2025 9:50 AM CDT 06/30/2025 9:50 AM CDT us Gabby Bose MD LAB BLOOD ORDERABLES Final R esult ARMONDFELISHA JGGladys [facility] Department [place] [address] * CBC with auto differential (06/30/2025 9:50 AM CDT) WBC 6.50 3.80 - 9.90 K/cumm Comment:Testing performed by : [facility][Note 3] Heme Lab, [address] [place] [address] Hgb 14.4 13.0 - 17.5 g/dL CERNER BJ Comment:Testing performed by : [facility][Note 3] Heme Lab, [address] [place] [address] Hct 42.5 38.9 - 50.3 % CERNER BJ Comment:Testing performed by : [facility][Note 3] Heme Lab, [address] [place], [place] [phone] Plt 226 150 - 400 K/cumm CERNER BJ Comment:Testing performed by : [facility][Note 3] Heme Lab, [address] [place] [address] MPV 7.7 6.8 - 10.4 fL CERNER BJ Comment:Testing performed by : [facility][Note 3] Heme Lab, [address] [place] [address] RBC 4.73 4.30 - 5.80 M/cumm CERNER BJ Comment:Testing performed by : [facility][Note 3] Heme Lab, [address] [place] [address] MCV 89.9 81.3 - 96.4 fL CERNER BJ Comment:Testing performed by : [facility][Note 3] Heme Lab, [address] [place] [address] MCH 30.4 27.1 - 33.3 pg CERNER BJ Comment:Testing performed by : [facility][Note 3] Heme Lab, [address] [place] [address] MCHC 33.8 32.3 - 35.7 g/dL CERNER BJ Comment:Testing performed by : [facility][Note 3] Heme Lab, [address] [place] [address] RDW CV 14.1 11.1 - 14.9 % CERNER BJ Comment:Testing performed by : [facility][Note 3] Heme Lab, [address] [place] [address] NRBC abs 0.00 0.00 - 0.01 K/cumm CERNER BJ Comment:Testing performed by : [facility][Note 3] Heme Lab, [address] [place] [address] Blood 06/30/2025 9:50 AM CDT 06/30/2025 9:50 AM CDT Gabby Bose MD LAB BLOOD ORDERABLES Final R esult Performing Organization Address City/[facility] Co de Phone Number [facility] Department [place] [address] * eGFR (06/30/2025 9:33 AM CDT) eGFR >90 >=60 mL/min/1. 73 m2 Comment: Interpretive Data Reference Interval Normal >/= 90 mL/min/1.73m2 Mildly decreased* 60 - 89 mL/min/1.73m2 Mildly to moderately decreased 45 - 59 mL/min/1.73m2 Moderately to severely decreased 30 - 44 mL/min/1.73m2 Severely decreased 15 - 29 mL/min/1.73m2 Kidney Failure < 15 mL/min/1.73m2 *Relative to young adult level Estimated glomerular filtration rate is determined by the 2020 CKD-EPI equation recommended by the National Kidney Foundation (A Unifying Approach to GFR Estimation: Recommendations of the NKF-ASK Task Force on Reassessing the Inclusion of Race in Diagnosing Kidney Disease, JASN 2020). The CKD-EPI equation should not be used for patients with unstable renal function and has not been validated in children and those over 70. Current interpretive data was last reviewed 2021. Blood 06/30/2025 9:33 AM CDT 06/30/2025 9:52 AM CDT us Gabby Bose MD LAB BLOOD ORDERABLES Final R esult [facility] Department [place] [address] * (ABNORMAL) Immunoglobulin free light chains (06/30/2025 9:33 AM CDT) Pathologist [facility] Halma/Lambda ratio [facility] 0.10(L) 0.26 - 1.65 Comment: Interpretive Data The Binding Site FreeLite assay procedure was used. Results from different manufacturers or methods may not be comparable. Serial testing should be performed using the same methods and instrumentation. Current Interpretive Data was last revised on 2023. Halma free light chain [facility] 2.57(H) 0.33 - 1.94 mg/dL [facility] Comment: Interpretive Data The Binding Site FreeLite assay procedure was used. Results from different manufacturers or methods may not be comparable. Serial testing should be performed using the same methods and instrumentation. Current Interpretive Data was last revised on 2023. Lambda free light chain BJ 24.86(H) 0.57 - 2.63 mg/dL [facility] Comment: Interpretive Data The Binding Site FreeLite assay procedure was used. Results from different manufacturers or methods may not be comparable. Serial testing should be performed using the same methods and instrumentation. Current Interpretive Data was last revised on 2023. Blood 06/30/2025 9:33 AM CDT 06/30/2025 10:25 AM CDT us Gabby Bose MD LAB BLOOD ORDERABLES Final R esult [facility] Department [place] [address] * (ABNORMAL) Protein electrophoresis with reflex, serum with interpretation (06/30/2025 9:33 AM CDT) Protein, sr 7.8 6.2 - 8.2 g/dL Albumin 4.1 3.2 - 5.0 g/dL [facility] Alpha-1 globulin 0.3 0.2 - 0.4 g/dL [facility] Alpha-2 globulin 0.7 0.5 - 1.0 g/dL [facility] Beta-1 globulin 0.5 0.3 - 0.6 g/dL [facility] Beta-2 globulin 0.4 0.2 - 0.6 g/dL [facility] Gamma globulin 1.9(H) 0.5 - 1.7 g/dL [facility] Rstr Pk Gamma 1.4(H) 0.0 - 0.0 g/dL [facility] SPEP interp Please see comment [facility] Comment: Abnormal restricted peak in Gamma region Electrophoretic pattern appears similar to previous sample 02/27/2024 Reviewed and signed by Maynor Davis MD, PhD 07/01/2025 Blood 06/30/2025 9:33 AM CDT 06/30/2025 10:25 AM CDT us Gabby Bose MD LAB BLOOD ORDERABLES Final R esult [facility] [place] [address] * IgA (06/30/2025 9:33 AM CDT) Pathologist [facility] Immunoglobulin A 224 70 - 400 mg/dL Blood 06/30/2025 9:33 AM CDT 06/30/2025 10:29 AM CDT us Gabby Bose MD LAB BLOOD ORDERABLES Final R esult Performing Organization Address City/[facility] Co de Phone Number [facility] [place] [address] * IgM (06/30/2025 9:33 AM CDT) Immunoglobulin M 72 40 - 230 mg/dL Blood 06/30/2025 9:33 AM CDT 06/30/2025 10:29 AM CDT us Gabby Bose MD LAB BLOOD ORDERABLES Final R esult Performing Organization Address City/[facility] Co de Phone Number [facility] Department [place] [address] * (ABNORMAL) IgG (06/30/2025 9:33 AM CDT) Immunoglobulin G 2,315(H) 700 - 1,600 mg/dL Blood 06/30/2025 9:33 AM CDT 06/30/2025 10:29 AM CDT Gabby Bose MD LAB BLOOD ORDERABLES Final R esult [facility] Department [place] [address] * (ABNORMAL) Comprehensive metabolic panel (06/30/2025 9:33 AM CDT) Pathologist [facility] Sodium 135 135 - 145 mmol/L Potassium, pl 4.2 3.3 - 4.9 mmol/L CERNER [facility] Chloride 103 97 - 110 mmol/L CERNER [facility] CO2 23 22 - 32 mmol/L [facility] Anion gap 9 2 - 15 mmol/L [facility] BUN 14 6 - 25 mg/dL [facility] Creatinine 0.73(L) 0.80 - 1.30 mg/dL [facility] Glucose 161 70 - 199 mg/dL [facility] Comment: Interpretive Data Fasting glucose >/= 126 mg/dl is diagnostic for diabetes. Fasting is defined as no caloric intake for at least 8 hours. Fasting glucose between 100 mg/dl to 125 mg/dl is diagnostic of prediabetes. In a patient with classic symptoms of hyperglycemia or hyperglycemic crisis, a random glucose >/= 200 mg/dl is diagnostic for diabetes. In the absence of unequivocal hyperglycemia, results should be confirmed by repeat testing. The classification and Diagnosis of Diabetes Diabetes Care 202; 46: S19-S40. Current interpretive data was last revised 2022. Calcium 9.0 8.5 - 10.3 mg/dL CERNER [facility] Bilirubin, total 0.4 0.1 - 1.2 mg/dL [facility] Protein, pl 8.2 6.5 - 8.5 g/dL [facility] Albumin 4.0 3.5 - 5.0 g/dL [facility] Alk phos 72 40 - 130 Units/L C[facility] ALT 19 7 - 55 Units/L [facility] AST 18 10 - 50 Units/L [facility] Blood 06/30/2025 9:33 AM CDT 06/30/2025 9:52 AM CDT us Gabby Bose MD LAB BLOOD ORDERABLES Final R esult Performing Organization Address [facility] de Phone Number [facility] Department [place] [address] * PSA screen (07/01/2019 10:47 AM CDT) PSA-Total 0.64 <=5.40 ng/mL [facility] Comment: Interpretive Data AGE SEX REFERENCE INTERVAL 0 minutes-150 years Female None 0 minutes-49 years Male None 50-59 years Male 0-3.90 60-69 years Male 0-5.40 70-79 years Male 0-6.20 80-150 years Male 0-6.20 Current interpretive data last revised 2018. Blood specimen (specimen) 07/01/2019 10:47 AM CDT 07/01/2019 11:38 AM CDT us Callum Ponce MD LAB BLOOD ORDERABLES Final Resu lt Performing Organization Address [facility] de Phone Number [facility] [address] [place] [address] * CT Abdomen Pelvis W Contrast (01/05/2018 12:26 PM CDT) Anatomical Region Laterality Modality Body N/A Computed Tomogra phy 01/05/2018 12:2 6 PM CDT Narrative 01/05/2018 12:54 PM CDT JOSELO SCHMIDT M.D. FINAL REPORT ACC# Date Time Exam [id number] Jan 05, 2018 07:26:[id number] Chest with contrast [id number] Jan 05, 2018 07:26:[id number] Abd & Pelvis with cont EXAMINATION: [...] SCHMIDT M.D. on Jan 05 2018 7:51A [id number] SCHMIDT M.D. FINAL REPORT Attending: MIGUEL DAVIS Requesting: MIGUEL DAVIS Requesting Fax: Attending Fax: Attending ID: [id number] Requesting ID: [id number] Report To 1 ID: [id number] Report To 1 Name: , Report To 1 FAX: Doc[employer]oc[employer] Order #: Procedure Note Miscellaneous, Not In File - 01/05/2018 JOSELO SCHMIDT M.D. FINAL REPORT ACC# Date Time Exam [id number] Jan 05, 2018 07:26:[id number] Chest with contrast [id number] Jan 05, 2018 07:26:[id number] Abd & Pelvis with cont EXAMINATION: [...] SCHMIDT M.D. on Jan 05 2018 7:51A [id number] SCHMIDT M.D. FINAL REPORT Attending: MIGUEL DAVIS Requesting: MIGUEL DAVIS Requesting Fax: Attending Fax: Attending ID: [id number] Requesting ID: [id number] Report To 1 ID: [id number] Report To 1 Name: , Report To 1 FAX: NextGen Order #: Miguel Davis MD PhD IMG CT PROCEDURES F inal Result from Last 3 Months or Most Recently Relevant to Health Maintenance Insurance MEDICARE [facility] FED[employer]AL MEDICARE [facility] Member Subscriber Plan / Payer ( fective 2005-Present) Name:Kristopher Miles Relation to Subscriber:Self Name:Kristopher Miles Payer ID:[id number] (NAIC) Group ID:[id number] Type:SeniorSource Address: [address] MEDICARE [facility] FEDERAL Advance Directives For more information, please contact: [phone] Documents on File Type Date Recorded Patient 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 Expl anation ADVANCE DIRECTIVE 09/30/2022 10:34 AM [facility] MACHINIST-MEDICAL * Full Code (Latest Code Status on File) Date Activated Date Inactivated Comments 09/23/2022 4:27 PM 09/27/2022 6:27 PM Care Teams Care Clinician Relationship Specialty Start Date End Date Greg Sosa DO [address] [place] [address] PCP - General Internal Medicine 01/29/21 Ayah Mata MD [address] [facility] [address] [place] [address] Radiation Oncology 12/25/18 Aft, Nidia Wallace MD PhD [address] [place] [address] Surgeon Surgical Oncology 12/25/18 Miguel Davis MD PhD [address] [facility] [address] [place] [address] Medical Oncologist/Manugrapher Medical Oncology 08/23/22 Pro Davis MD [address] [facility] [address] [place] [address] Surgeon Orthopedic Surgery 09/23/22
--- OUTSIDE RECORDS SUMMARY | 2025-07-14 07:59 | XMS_ITS ---
Author Organization [facility] Address [address] [place] [address] Care Team Providers Care Aircraft Maintenance Instructor Name Role Phone Ayah Mata MD Unavailable Aft, Nidia Wallace MD PhD Unavailable [phone] Greg Sosa DO Primary Care Provider [phone] Maxwell Davis MD PhD Unavailable [phone] Pro Davis MD Unavailable [phone] Active Problems Problem Noted Date Diagnosed Date Status post cervical spinal fusion 09/23/2022 Cervical spondylosis with myelopathy 08/23/2022 Overview (08/23/2022): Added automatically from request for surgery [id number] Subjective cognitive impairment 07/08/2022 Assessment & Plan (07/08/2022 4:49 PM CDT): Check TSH, B12 given tremor and gait issues. Will obtain 12/2020 brain MRI for my review. Continue with PT for gait training Recommend discussing with pricing director re: depth perception. Refer back to ortho [...]
--- OUTSIDE RECORDS SUMMARY | 2025-07-14 07:59 | XMS_ITS | Encounter Summary ---
Author Organization [facility] Address [address] [place] [address] Phone Care Team Providers Care Metal Trades Instructor Name Role Phone Ayah Mata MD Unavailable Aft, Nidia Wallace MD PhD Unavailable [phone] Greg Sosa DO Primary Care Provider [phone]- [phone] Maxwell Davis MD PhD Unavailable + [phone] Pro Davis MD Unavailable [phone] Encounter Details Date Type Department Care Team (Latest Contact Info) Description 07/04/2025 Results Follow-Up [facility] Medicine Hematology [address] [facility] [address] [place] [address] Rhonda Godoy RN Protein electrophoresis with reflex, serum with interpretation, Immunoglobulin free light chains, IgM, Additional followed-up results: 6 Social History Tobacco Use Types Packs/Day Years [...] on file 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 [employer] Gender Identity Male 01/14/2022 6:30 PM CDT Sexual Orientation Straight 06/15/2021 2: 36 PM CDT Occupation Industry Job Start Date Job End Date Retired Not on file Not on file Not on file documented as of this encounter Plan of Treatment Not on file documented as of this encounter Visit Diagnoses Not on filedocumented in this encounter Care Teams Metal Trades Instructor Relationship Specialty Start Date End Date Greg Sosa DO [address] [place] [address] PCP - General Internal Medicine 01/29/21 Ayah Mata MD [address] [email or web address] [address] [place] [address] Radiation Oncology 12/25/18 Aft, Nidia Wallace MD PhD [address] [place] [address] Surgeon Surgical Oncology 12/25/18 Maxwell Davis MD PhD [address] [email or web address] [address] [place] [address] Medical Oncologist/Biological Scientist Medical Oncology 08/23/22 Pro Davis MD [address] [email or web address] [address] [place] [address] Surgeon Orthopedic Surgery 09/23/22 documented as of this encounter
[2025-07-14 17:21] LABS: Alanine Aminotransferase 23 U/L (6-50); Albumin Level 3.9 g/dL (3.5-5.1); Alkaline Phosphatase 73 U/L (38-126); Anion Gap 5 mmol/L (4-12); Aspartate Amino Transferase 43 U/L (17-59); Bilirubin,Total 0.6 mg/dL (0.2-1.3); Blood Urea Nitrogen 14 mg/dL (9-20); Calcium 8.7 mg/dL (8.4-10.2); Carbon Dioxide 27 mmol/L (22-30); Chloride 103 mmol/L (98-107); Estimated Glomerular Filt Rate > 60; Glucose 155 mg/dL (65-110); Potassium 4.2 mmol/L (3.4-5.0); Sodium 135 mmol/L (137-145); Total Protein 8.2 g/dL (6.3-8.2)
[2025-07-14 18:01] LABS: Hemoglobin A1C 7.2 % (<5.7)
== END 2025-07-14 07:54 | disposition home or self-care (01) ==
LOC: ANHGOSHLAB 07:54
PROVIDERS: PCP Nurse Practitioner; Visit Provider Nurse Practitioner
DX: E11.9 Type 2 diabetes mellitus without complications (principal)
CPT/HCPCS: 36415; 80053; 83036